=== PATIENT | male | born 1960 | race African-American/Black ===

== ENCOUNTER 2016-09-03 01:28 | Emergency (ER) | payer OTHER ==
[~2016-09-03 01:28] MED LIST: ACIPHEX20 MG PO; ALBUTEROL17 GM INH; AMOXICILLIN PO; ASPIRIN81 M1 PO; ASPIRIN81 M2 PO; ASPIRINEC PO; BACTROBAN22 GM TP; BLOOD PRESSURE PO; BP MED; FLONASE16 GM; GLIPIZIDE10 MG PO; GLUCOPHAGE500 MG PO; GLUCOTROL10 MG PO; IBUPROFEN600 MG PO; IBUPROFEN800 MG PO; IPRATROPIUM IH; KETOPROFEN PO; KLOR-CON PO; LISINOPRIL10 MG PO; LORTAB PO; METFORMIN HCL500 M1 PO; METOPROLOL TAR25 MG PO; MULTI VITAMIN1 EACH PO; MULTI-VITAMIN1 EAC1 PO; NICOTINE P1 PATCH .1 TD; NO MEDICATIONS; ORUDIS75 M1 PO; OXAZEPAM10 MG PO; PEN-VEE K PO; PRILOSEC20 M1 PO; PROVENTIL17 GM IH; QVAR7.3 G1 INH; SYMBICORT INH; THIAMINE HCL100 M1 PO; TYLENOL325 M1 PO; UNKNOWN BP MED; VICODIN 5/500 T1 TAB PO; ZANTAC PO; ZESTRIL10 MG PO; ZITHROMAX PO; [UNRECOGNIZED DRUG - OTHER]; [UNRECOGNIZED DRUG - REMARK]; [UNRECOGNIZED DRUG - REMARK]
== END 2016-09-03 06:50 | disposition home or self-care (01) ==
LOC: SED 01:28
DX: M25.552 Pain in left hip (principal); G89.29 Other chronic pain; F10.129 Alcohol abuse with intoxication, unspecified
CPT/HCPCS: 99282

== ENCOUNTER 2016-09-05 22:12 | Emergency (ER) | payer OTHER ==
[2016-09-05 23:53] LABS: ALBUMIN SERUM 4.5 g/dL (3.5-5.0); ALKALINE PHOSPHATASE 82 U/L (32-92); ALT (SGPT) 25 U/L (10-40); AST (SGOT) 34 U/L (10-42); BILIRUBIN, DIRECT 0.1 mg/dL (0.0-0.2); BILIRUBIN,INDIRECT 0.3 mg/dL (0.0-0.9); BILIRUBIN,TOTAL 0.4 mg/dL (0.2-2.0); BLOOD UREA NITROGEN 6 mg/dL (9-23); CARBON DIOXIDE 26 mmol/L (22-31); CHLORIDE 99 mmol/L (100-111); CREATININE SERUM 0.8 mg/dL (0.6-1.4); GLOM FILT RATE Estimated ABOVE60 mL/min (>60); GLUCOSE FASTING 115 mg/dL (70-110); POTASSIUM 3.8 mmol/L (3.5-5.1); PROTEIN TOTAL SERUM 8.4 g/dL (6.0-8.3); SALICYLATE <4.0 mg/dL; SODIUM 138 mmol/L (135-145)
[2016-09-06] LABS: ACETAMINOPHEN <10 ug/mL
[2016-09-06 00:01] LABS: ALCOHOL BLOOD 363 mg/dL (0)
[2016-09-06 00:13] LABS: AMPHETAMINE NEG (NEG); BARBITURATES NEG (NEG); BENZODIAZEPINES NEG (NEG); COCAINE NEG (NEG); MARIJUANA NEG (NEG); OPIATES NEG (NEG); TRICYCLIC ANTIDEPRESSANTS NEG (NEG); U METHADONE NEG (NEG)
[2016-09-06 02:02] LABS: BASOPHIL% 0.8 % (0-2.5); EOSINOPHIL# 0.3 X10e3 (0-0.7); EOSINOPHIL% 4.2 % (0.0-7.0); HEMATOCRIT 44.8 % (38.0-50.0); LYMPHOCYTE% 49.4 % (17.0-45.0); MEAN CELL VOLUME 89.3 FL (83-96); MEAN CORPUSCULAR HEMOGLOBIN 29.9 PG (28-34); MEAN CORPUSCULAR HGB CONC 33.5 g/dL (30-36); MEAN PLATELET VOLUME 8.4 FL (6.5-11.5); MONOCYTE# 0.4 X10e3 (0-1.0); MONOCYTE% 7.2 % (3.0-12.0); NEUTROPHIL# 2.4 X10e3 (1.5-7.1); NEUTROPHIL% 38.4 % (40-75); PLATELET COUNT 282 X10e3 (140-420); RED BLOOD COUNT 5.02 X10e (3.90-5.60); RED CELL DISTRIBUTION WIDTH 13.7 % (11.0-15.5); WHITE BLOOD COUNT 6.2 X10e3 (4.0-10.5)
[2016-09-06 02:05] LABS: DIFF IND NO
== END 2016-09-06 09:58 ==
LOC: CED 22:12
PROVIDERS: Emergency Medicine
DX: F10.10 Alcohol abuse, uncomplicated (principal); F31.9 Bipolar disorder, unspecified; F20.9 Schizophrenia, unspecified; I25.10 Atherosclerotic heart disease of native coronary artery without angina pectoris; I10 Essential (primary) hypertension; J45.909 Unspecified asthma, uncomplicated; F17.210 Nicotine dependence, cigarettes, uncomplicated
CPT/HCPCS: 36415; 80048; 80076; 80307; 82947; 85025; 99283; G0480

== ENCOUNTER 2016-09-08 14:22 | Emergency (ER) | payer OTHER ==
--- NOTE | ~2016-09-08 | CR150 ---
[facility] A Service of [facility] RADIOLOGY TEXT RESULTS PATIENT: JAIME MATA LOCATION: [facility] : 62 UNIT #: [id number] AGE: [address]: Efrain Martinez MD SEX: M ORDER DR: [id number] [facility] [address] [place], [place] [address] [id number] E MR#: [id number] Acc #: [id number] NAME: JAIME MATA : 1960 SEX: M STUDY DATE/TIME: 09/08/2016 13:46 UNIT: [facility] ROOM: STUDY DESCRIPTION: CR Hip Min 2 Views Lt Attending Physician: Mynor Martinez M.D. Ordering Physician: Ed Noe Rodriguez M.D. Primary Care Physician: No Primary Care Physician MEDICAL IMAGING REPORT This report is preliminary unless electronic signature is present EXAM Left hip, 09/08/2016, 1346 hours. HISTORY 2-year history of left hip pain. No acute injury. COMPARISON 07/24/2016 left femur film; left hip film 07/11/2016. FINDINGS AP pelvis and frog lateral view left hip demonstrate prior hardware at the right hip. Overall bone density is normal. Left hip joint space is normal. There is no fracture or degenerative change. IMPRESSION Negative pelvis and left hip. Stable hardware at the right femur. Dictated by... Cristina Dexter M.D. THIS IS AN ELECTRONICALLY VERIFIED REPORT Cristina Dexter M.D. at 09/09/2016 8:42 AM Yamileth TD: 09/08/2016 14:40 JOB #: [id number] MEDICAL IMAGING REPORT Page 1 of 1 COPY
== END 2016-09-08 14:30 | disposition home or self-care (01) ==
LOC: CED 14:22
DX: G89.29 Other chronic pain (principal); M25.552 Pain in left hip; F31.9 Bipolar disorder, unspecified; F17.210 Nicotine dependence, cigarettes, uncomplicated
CPT/HCPCS: 73502; 99283

== ENCOUNTER 2016-09-10 15:12 | Emergency (ER) | payer OTHER ==
--- NOTE | ~2016-09-10 | CR206 ---
[facility] A Service of [facility] RADIOLOGY TEXT RESULTS PATIENT: JAIME MATA LOCATION: SED : 62 UNIT #: [id number] AGE: [address]: Joaquim Pedraza MD SEX: M ORDER DR: [id number] [place] [id number] E MR#: [id number] Acc #: [id number] NAME: JAIME MATA : 1960 SEX: M STUDY DATE/TIME: 09/10/2016 15:16 UNIT: [facility] ROOM: STUDY DESCRIPTION: CR Pelvis 1 or 2 Views Attending Physician: Joaquim Pedraza M.D. Ordering Physician: Joaquim Pedraza M.D. Primary Care Physician: No Primary Care Physician MEDICAL IMAGING REPORT This report is preliminary unless electronic signature is present. EXAM Bilateral hips HISTORY 56-year-old male, pelvic pain and states EMS was called for man down FINDINGS Single AP view of the pelvis demonstrates postsurgical changes from ORIF of the right femur with a long intramedullary nail and proximal interlocking screw. Heterotopic ossification seen along the greater trochanter. No acute fracture noted. Bone mineralization appears normal. Pelvic calcifications compatible with phleboliths. Lower lumbar spine unremarkable. The left hip appears normal. No arthritic changes right hip. IMPRESSION No acute findings Dictated by... Manoj Casper M.D. THIS IS AN ELECTRONICALLY VERIFIED REPORT Manoj Casper M.D. at 09/11/2016 10:51 PM TIFFANY/maxim TD: 09/11/2016 04:11 JOB #: [id number] MEDICAL IMAGING REPORT Page 1 of 1
== END 2016-09-10 16:12 | disposition home or self-care (01) ==
LOC: SED 15:12
DX: S76.012A Strain of muscle, fascia and tendon of left hip, initial encounter (principal); M71.9 Bursopathy, unspecified; F31.9 Bipolar disorder, unspecified; J45.909 Unspecified asthma, uncomplicated; M19.90 Unspecified osteoarthritis, unspecified site; F20.9 Schizophrenia, unspecified
CPT/HCPCS: 72170; 99283

== ENCOUNTER 2016-09-11 08:13 | Emergency (ER) | payer OTHER | END 2016-09-11 08:25 | disposition home or self-care (01) | LOC: CED 08:13 | DX: G89.29 Other chronic pain (principal); M25.552 Pain in left hip; E11.9 Type 2 diabetes mellitus without complications; J44.9 Chronic obstructive pulmonary disease, unspecified; I10 Essential (primary) hypertension; F31.9 Bipolar disorder, unspecified; F20.9 Schizophrenia, unspecified; F17.210 Nicotine dependence, cigarettes, uncomplicated | CPT/HCPCS: 99283 ==

== ENCOUNTER 2016-09-16 20:46 | Emergency (ER) | payer OTHER ==
--- NOTE | ~2016-09-16 | CR229 ---
[facility] A Service of [facility] RADIOLOGY TEXT RESULTS PATIENT: JAIME MATA LOCATION: [facility] : 62 UNIT #: [id number] AGE: [address]: Adam Arias MD SEX: M ORDER DR: [id number] [facility] [address] [place], [place] [address] [id number] E MR#: [id number] Acc #: [id number] NAME: JAIME MATA : 1960 SEX: M STUDY DATE/TIME: 09/16/2016 21:20 UNIT: [facility] ROOM: STUDY DESCRIPTION: CR Shoulder Min 2 View Lt Attending Physician: Adam Arias M.D. Referring Physician: Primary Care Physician No Ordering Physician: Katlyn Maddox M.D. Primary Care Physician: Primary Care Physician No MEDICAL IMAGING REPORT This report is preliminary unless electronic signature is present EXAM Left shoulder 3 views HISTORY Shoulder pain after fall yesterday. FINDINGS AP view with internal and external rotation of the shoulder girdle shows satisfactory relationship of the humeral head and glenoid fossa. The joint space is normal. There is no identifiable fracture or dislocation or bony destructive process about the shoulder girdle anatomy. The acromioclavicular joint is normal. There is no radiopaque foreign body in the region. IMPRESSION Normal left shoulder. Dictated by... Tomi Treviño M.D. THIS IS AN ELECTRONICALLY VERIFIED REPORT Tomi Treviño M.D. at 09/17/2016 1:33 PM Christina TD: 09/17/2016 11:52 JOB #: [id number] MEDICAL IMAGING REPORT Page 1 of 1 COPY
[2016-09-16 21:10] LABS: BASOPHIL# 0.1 X10e3 (0-0.3); BASOPHIL% 0.9 % (0-2.5); EOSINOPHIL# 0.3 X10e3 (0-0.7); EOSINOPHIL% 4.7 % (0.0-7.0); HEMATOCRIT 41.7 % (38.0-50.0); HEMOGLOBIN 14.1 gm/dL (13.0-16.0); LYMPHOCYTE# 2.4 X10e3 (1.0-3.5); LYMPHOCYTE% 37.2 % (17.0-45.0); MEAN CELL VOLUME 89.8 FL (83-96); MEAN CORPUSCULAR HEMOGLOBIN 30.3 PG (28-34); MEAN CORPUSCULAR HGB CONC 33.7 g/dL (30-36); MEAN PLATELET VOLUME 7.9 FL (6.5-11.5); MONOCYTE# 0.4 X10e3 (0-1.0); MONOCYTE% 6.9 % (3.0-12.0); NEUTROPHIL# 3.3 X10e3 (1.5-7.1); NEUTROPHIL% 50.3 % (40-75); PLATELET COUNT 277 X10e3 (140-420); RED BLOOD COUNT 4.64 X10e (3.90-5.60); RED CELL DISTRIBUTION WIDTH 14.3 % (11.0-15.5); WHITE BLOOD COUNT 6.5 X10e3 (4.0-10.5)
[2016-09-16 21:11] LABS: DIFF IND NO
[2016-09-16 22:01] LABS: BILIRUBIN, DIRECT 0.1 mg/dL (0.0-0.2); BILIRUBIN,INDIRECT 0.2 mg/dL (0.0-0.9); BILIRUBIN,TOTAL 0.3 mg/dL (0.2-2.0); BUN/CREATININE RATIO 11.42; CALCIUM SERUM 8.8 mg/dL (8.4-10.2); CREATININE SERUM 0.7 mg/dL (0.6-1.4); GLOM FILT RATE Estimated 123.2 mL/min (>60); POTASSIUM 3.5 mmol/L (3.5-5.1)
== END 2016-09-17 04:44 | disposition short-term general hospital (02) ==
LOC: CED 20:46
PROVIDERS: Student in an Organized Health Care Education/Training Program
DX: F10.229 Alcohol dependence with intoxication, unspecified (principal); F20.9 Schizophrenia, unspecified; R45.850 Homicidal ideations; R45.851 Suicidal ideations; I10 Essential (primary) hypertension; F17.200 Nicotine dependence, unspecified, uncomplicated
CPT/HCPCS: 73030; 80048; 80076; 85025; 99285; G0480

== ENCOUNTER 2016-09-17 05:05 | Inpatient (IN) | payer OTHER ==
--- NOTE | ~2016-09-17 | PA ---
Unit #: [id number] #: [id number] Patient: JAIME MATA [id number] [facility] [address] [place] [address] [id number] MR#: [id number] NAME: JAIME MATA ROOM: [facility] Age: 56 Sex: M Admission Date: 09/17/2016 : 1960 Date of Assessment: 09/18/2016 Attending Physician: Issa Serrano M.D. Admitting Physician: Issa Serrano M.D. Primary Care Physician: Primary Care Physician No PSYCHIATRIC ASSESSMENT DATE OF SERVICE 09/18/2016. INFORMANTS The patient reliable; OLOP, reliable. CHIEF COMPLAINT Suicidal ideation. HISTORY OF PRESENT ILLNESS Jaime Mata is a 56-year-old man, who reports that he has been living on the streets due to medical condition and "drinking a gallon of [place]" a day. He drinks about 3 days out of the week. The patient had a knife on him and said that he "wanted to kill someone" when he was assessed at [facility]. He was clearly in a decompensated state and [facility] and [facility]. PAST PSYCHIATRIC HISTORY No previous admissions to this facility. The patient does have a history of alcohol dependence and reports no previous inpatient stays in the area. FAMILY PSYCHIATRIC HISTORY The patient denied a family history of mental illness or substance abuse. SOCIAL HISTORY The patient denied history of abuse or neglect. He is a single heterosexual man, who is currently homeless on a limited income. He is unemployed and finished high school. He was recently evicted from his apartment and is not currently living with his . PAST MEDICAL HISTORY Diabetes, hypertension, and prior hip and back surgery. MEDICATIONS The patient states he is not currently on any medications and could not remember the names and doses. ALLERGIES No known medication allergies. SUBSTANCE USE HISTORY As noted above. Unit #: [id number] #: [id number] Patient: JAIME MATA MENTAL STATUS EXAMINATION Mr. Mata presented as a disheveled man, who appeared his stated age. He was cooperative with the examination. His speech was spontaneous and easily understood. His musculoskeletal examination was mildly tremulous. His mood was depressed with a flat affect. He was alert and fully oriented. His memory and concentration were fair. His thought processes were goal directed with no active psychosis. He did report vague suicidal and homicidal ideation. He could not contract for safety outside of the hospital. His insight and judgment were fair. His fund of knowledge and abstraction were fair. ASSETS AND LIABILITIES The patient is familiar with local resources and presents voluntarily for treatment. Liabilities include lack of stable housing, multiple medical issues without treatment. ADMITTING DIAGNOSES AXIS I: Major depression, F33.2. AXIS II: No diagnosis. AXIS III: Hypertension, asthma, chronic pain. AXIS IV: AXIS V: PSYCHIATRIC PLAN The patient was admitted and placed on suicide precautions. His home medications will be determined by contacting his pharmacy and he will be placed on the alcohol detox protocol. He declined initiation of an antidepressant medication. TREATMENT GOALS Resolution of SI, stabilization of mood, improvement in insight, and improvement in coping skills, establishment of sobriety. DISCHARGE INSTRUCTIONS Followup with [facility]. ESTIMATED LENGTH OF STAY 5 days. Dictated by... Issa Serrano M.D. LAKISHA/zayra TD: 11/03/2016 01:44 JOB #: [id number] Unit #: [id number] #: [id number] Patient: JAIME MATA PSYCHIATRIC ASSESSMENT Page 1 of 1 X Issa Serrano MD X PSYCHIATRIC ASSESSMENT
--- NOTE | ~2016-09-17 | DS ---
Unit #: [id number] #: [id number] Patient: JAIME MATA [id number] [facility] [address] [place] [address] [id number] I MR#: [id number] NAME: JAIME MATA ROOM: [facility] Age: 56 Sex: M Admission Date: 09/17/2016 : 1960 Discharge Date: 09/19/2016 Attending Physician: Issa Serrano M.D. Primary Care Physician: Primary Care Physician No DISCHARGE SUMMARY REASON FOR ADMISSION Mr. Mata is a 56-year-old man who came in reporting vague suicidal and homicidal ideation and complaining of homelessness and lack of treatment for his multiple medical conditions. He had also been drinking alcohol to excess. He was admitted for safety and stabilization. DIAGNOSTIC STUDIES LABORATORY RESULTS: Please see hospital chart. HOSPITAL COURSE Mr. Mata was admitted and placed on suicide precautions and the alcohol detox protocol. He was seen by our medical consultants and restarted on diclofenac. He had no further suicidal ideation, intent, or plan and declined initiation of an antidepressant medication. On the date of discharge, he once again contracted for safety in the outpatient setting. DISCHARGE DIAGNOSES AXIS I: Alcohol dependence with withdrawal (revised diagnosis); depressive disorder, not otherwise specified. AXIS II: No diagnosis. AXIS III: Chronic pain. AXIS IV: AXIS V: DISCHARGE INSTRUCTIONS Follow up with [facility] and community health resources. DISCHARGE MEDICATIONS None were provided. The patient was to continue on diclofenac 75 mg b.i.d. by his primary care physician. CONDITION AT DISCHARGE Improved. PROGNOSIS Fair to good. DIET AND ACTIVITY Ad brody. Dictated by... Unit #: [id number] #: [id number] Patient: JAIME MATA Issa Serrano M.D. MRH/modl TD: 11/03/2016 00:44 JOB #: [id number] DISCHARGE SUMMARY Page 1 of 1 X Issa Serrano MD X DISCHARGE SUMMARY
--- NOTE | ~2016-09-17 | HP ---
Unit #: [id number] #: [id number] Patient: JAIME MATA [id number] [place] [address] [id number] I MR#: [id number] NAME: JAIME MATA ROOM: P205 Age: 56 Sex: M Admission Date: 09/17/2016 : 1960 Attending Physician: Issa Serrano M.D. Admitting Physician: Issa Serrano M.D. Primary Care Physician: Primary Care Physician No HISTORY AND PHYSICAL HISTORY OF PRESENT ILLNESS The patient states the only reason he is here is because he is homeless and he cannot live on the streets anymore with all of his medical conditions. PAST MEDICAL HISTORY Patient states asthma, hypertension and left hip pain. PAST SURGICAL HISTORY Significant for left leg surgery of some sort, although patient cannot tell me what. ALLERGIES None. SOCIAL HISTORY Negative. FAMILY HISTORY Noncontributory. REVIEW OF SYSTEMS CONSTITUTIONAL: No fever or chills. HEENT: Denies any sore throat, ear pain or runny nose. CARDIOVASCULAR: Denies chest pain, irregular heart rhythm or palpitations. CHEST: Denies shortness of breath or cough. No hemoptysis. GASTROINTESTINAL: Denies nausea, vomiting, diarrhea or chronic constipation. ENDOCRINE: Denies history of increased thirst or urination. No recent significant weight loss or gain. GENITOURINARY: Denies dysuria, frequency, or hematuria. SKIN: Denies any rashes. HEMATOLOGIC: Denies history of increased bleeding or bruising. MUSCULOSKELETAL: Denies any hot, swollen joints. No generalized muscle pain. NEUROLOGIC: Denies problems with vision or speech. No frequent, severe headaches. No numbness, tingling or weakness in any extremities. Denies loss of bladder or bowel control. CURRENT MEDICATIONS None. PHYSICAL EXAMINATION Unit #: [id number] #: [id number] Patient: JAIME MATA GENERAL: Alert, oriented, in no acute distress. VITAL SIGNS: Temperature 98.3, blood pressure 122/68, heart rate 82, respirations 16. HEIGHT: 5 feet 6 inches. WEIGHT: 200 pounds. SKIN: Multiple scars bilateral chest, midline abdomen, bilateral knees, right hip. Abrasion to the left thigh and a scar to the midline thoracic area. Tattoo to the left deltoid. Abrasion to the left wrist. Scars over the left eye and midline scalp. HEENT: Normocephalic. TMs not viewed. Oral and nasal passages clear. Conjunctivae clear. PERRLA. EOMs intact. NECK: Supple without lymphadenopathy or thyromegaly. HEART: Regular rate and rhythm without murmur. LUNGS: Clear. ABDOMEN: Soft, nontender, without masses or hepatosplenomegaly. : Not done. EXTREMITIES: No evidence of cyanosis, clubbing or edema. Moves all without focal deficit. NEUROLOGICAL: Grossly within normal limits. Cranial Nerves: II: Visual gonzales are intact. III, IV AND : Extraocular movements are intact. Pupils are equal, round and reactive to light. V: Facial sensation is grossly normal. VII: Facial movements and expression are normal. VIII: Auditory acuity grossly intact. IX, X: Uvula is midline. Phonation is normal. XI: Patient shrugs shoulders and turns head normally. XII: Tongue protrudes in the midline. Sensory and Motor Function: Sensory and motor sensation is grossly normal. Motor: moves all extremities well. Coordination: Gait is normal. Deep Tendon Reflexes: Intact. IMPRESSION Psychiatric admission. RECOMMENDATIONS PSYCHIATRIC: Per psychiatrist. MEDICAL: No contraindications to participate in facility's activities. MEDICAL PROGNOSIS Good. Dictated by... Apolonia Savage/keke TD: 09/17/2016 18:56 JOB #: [id number] Unit #: [id number] #: [id number] Patient: JAIME MATA HISTORY AND PHYSICAL Page 1 of 1 X Sharron Echevarria APR X HISTORY AND PHYSICAL
[2016-09-18 16:04] LABS: BASOPHIL% 0.6 % (0-2.5); EOSINOPHIL# 0.3 X10e3 (0-0.7); HEMOGLOBIN 14.8 gm/dL (13.0-16.0); LYMPHOCYTE# 1.7 X10e3 (1.0-3.5); LYMPHOCYTE% 22.2 % (17.0-45.0); MEAN CELL VOLUME 91.9 FL (83-96); MEAN CORPUSCULAR HEMOGLOBIN 30.2 PG (28-34); MEAN CORPUSCULAR HGB CONC 32.9 g/dL (30-36); MONOCYTE# 0.6 X10e3 (0-1.0); MONOCYTE% 7.4 % (3.0-12.0); NEUTROPHIL# 5.2 X10e3 (1.5-7.1); NEUTROPHIL% 65.8 % (40-75); PLATELET COUNT 290 X10e3 (140-420); RED CELL DISTRIBUTION WIDTH 14.4 % (11.0-15.5); WHITE BLOOD COUNT 7.9 X10e3 (4.0-10.5)
[2016-09-18 16:06] LABS: DIFF IND NO
[2016-09-18 16:34] LABS: ALBUMIN SERUM 4.2 g/dL (3.5-5.0); BILIRUBIN,TOTAL 0.4 mg/dL (0.2-2.0); GLOM FILT RATE Estimated 97.8 mL/min (>60); POTASSIUM 4.2 mmol/L (3.5-5.1); PROTEIN TOTAL SERUM 7.4 g/dL (6.0-8.3)
== END 2016-09-19 12:06 | DRG 897 ==
LOC: P2S 05:05
PROVIDERS: Psychiatry & Neurology Psychiatry
PROC: HZ2ZZZZ Detoxification Services for Substance Abuse Treatment (ICD-10-PCS; principal; 2016-09-17)
DX: F10.239 Alcohol dependence with withdrawal, unspecified (principal); F33.2 Major depressive disorder, recurrent severe without psychotic features; R45.851 Suicidal ideations; I10 Essential (primary) hypertension; J45.909 Unspecified asthma, uncomplicated; G89.29 Other chronic pain
CPT/HCPCS: 80053; 83036; 85025; 86592

== ENCOUNTER 2016-09-21 23:59 | Emergency (ER) | payer OTHER ==
--- NOTE | ~2016-09-21 | CR150 ---
[facility] A Service of [facility] RADIOLOGY TEXT RESULTS PATIENT: JAIME MATA LOCATION: [facility] : 62 UNIT #: [id number] AGE: [address]: Dallas Xie SEX: M ORDER DR: [id number] [facility] [address] [place], [place] [address] [id number] E MR#: [id number] Acc #: [id number] NAME: JAIME MATA : 1960 SEX: M STUDY DATE/TIME: 09/22/2016 4:52 UNIT: [facility] ROOM: STUDY DESCRIPTION: CR Hip Min 2 Views Lt Attending Physician: Dallas Xie P.A.-C. Ordering Physician: Dallas Xie P.A.-C. Primary Care Physician: Primary Care Physician No MEDICAL IMAGING REPORT This report is preliminary unless electronic signature is present EXAM Left hip series INDICATIONS Left hip pain after a fall tonight. PROCEDURE Frontal view pelvis and lateral view left hip COMPARISON 09/08/2016 FINDINGS No acute fracture or dislocation. IMPRESSION No acute findings. Dictated by... Mynor Reagan M.D. THIS IS AN ELECTRONICALLY VERIFIED REPORT Mynor Reagan M.D. at 09/26/2016 7:30 AM Amie TD: 09/22/2016 06:59 JOB #: [id number] MEDICAL IMAGING REPORT Page 1 of 1 COPY
--- NOTE | ~2016-09-21 | CR181 ---
[facility] A Service of [facility] RADIOLOGY TEXT RESULTS PATIENT: JAIME MATA LOCATION: [facility] : 62 UNIT #: [id number] AGE: [address]: Dallas Xie SEX: M ORDER DR: [id number] [facility] [address] [place], [place] [address] [id number] E MR#: [id number] Acc #: [id number] NAME: JAIME MATA : 1960 SEX: M STUDY DATE/TIME: 09/22/2016 4:54 UNIT: [facility] ROOM: STUDY DESCRIPTION: CR Lumbar Spine 2 or 3 Views Attending Physician: Dallas Xie P.A.-C. Ordering Physician: Dallas Xie P.A.-C. Primary Care Physician: Primary Care Physician No MEDICAL IMAGING REPORT This report is preliminary unless electronic signature is present EXAM Lumbar spine series INDICATIONS Lower back and left hip pain after fall tonight. PROCEDURE 3 views lumbar spine. COMPARISON 12/25/2013 FINDINGS Lumbar bodies have normal height. Overall alignment preserved. Degenerative change most significant at L3-L4, and similar to the prior. IMPRESSION No acute findings. Degenerative change similar to 2014. Dictated by... Mynor Reagan M.D. THIS IS AN ELECTRONICALLY VERIFIED REPORT Mynor Reagan M.D. at 09/26/2016 7:30 AM TANGELA/debo TD: 09/22/2016 07:00 JOB #: [id number] MEDICAL IMAGING REPORT Page 1 of 1 COPY
== END 2016-09-22 06:21 | disposition home or self-care (01) ==
LOC: CFTX 23:59
DX: M54.5 Low back pain (principal); M25.552 Pain in left hip; G89.29 Other chronic pain; F17.210 Nicotine dependence, cigarettes, uncomplicated; W01.0XXA Fall on same level from slipping, tripping and stumbling without subsequent striking against object, initial encounter; Y92.410 Unspecified street and highway as the place of occurrence of the external cause
CPT/HCPCS: 72100; 73502; 99284

== ENCOUNTER 2016-09-23 23:39 | Emergency (ER) | payer OTHER ==
--- NOTE | ~2016-09-23 | CT52 ---
[facility] A Service of [facility] RADIOLOGY TEXT RESULTS PATIENT: JAIME MATA LOCATION: [facility] : 62 UNIT #: [id number] AGE: [address]: Adam Tom MD SEX: M ORDER DR: [id number] [facility] [address] [place], [place] [address] [id number] E MR#: [id number] Acc #: [id number] NAME: JAIME MATA : 1960 SEX: M STUDY DATE/TIME: 09/24/2016 00:39 UNIT: [facility] ROOM: STUDY DESCRIPTION: CT Cervical Spine Wo Cont Attending Physician: Adam Tom M.D. Ordering Physician: Ed Neo Rodriguez M.D. Primary Care Physician: No Primary Care Physician MEDICAL IMAGING REPORT This report is preliminary unless electronic signature is present EXAM Cervical spine CT, 09/24 at 0039 hours. INDICATIONS Patient intoxicated and found down this evening. Patient confused and complains of neck pain. TECHNIQUE Axial images obtained through the cervical spine without contrast. Multiplanar reformats were obtained. Comparison is made with 12/25/2013. This CT exam was performed with one or more of the following radiation dose reduction techniques: automatic exposure control, adjustment of mA and/or kV according to patient size, and iterative reconstruction. FINDINGS No acute fracture or malalignment is seen. There is relatively mild degenerative disease, most pronounced at C5-6 where there is a broad-based disc osteophyte complex with mild narrowing of the central canal and both foramina. This does not appear significantly changed. IMPRESSION No acute fracture or malalignment. No significant change from prior. Dictated by... Rafi Fregoso Jr., M.D. THIS IS AN ELECTRONICALLY VERIFIED REPORT Rafi Fregoso Jr., M.D. at 09/24/2016 12:37 PM RANDELL/robert TD: 09/24/2016 09:19 JOB #: [id number] [facility] A Service of [facility] RADIOLOGY TEXT RESULTS PATIENT: JAIME MATA LOCATION: [facility] : 62 UNIT #: [id number] AGE: [address]: Adam Tom MD SEX: M ORDER DR: MEDICAL IMAGING REPORT Page 1 of 1 COPY
--- NOTE | ~2016-09-23 | CT71 ---
[facility] A Service of [facility] RADIOLOGY TEXT RESULTS PATIENT: JAIME MATA LOCATION: [facility] : 62 UNIT #: [id number] AGE: [address]: Adam Tom MD SEX: M ORDER DR: [id number] [facility] [address] [place], [place] [address] [id number] E MR#: [id number] Acc #: [id number] NAME: JAIME MATA : 1960 SEX: M STUDY DATE/TIME: 09/24/2016 00:36 UNIT: [facility] ROOM: STUDY DESCRIPTION: CT Head Wo Contrast Attending Physician: Adam Tom M.D. Ordering Physician: Ramez Rodriguez M.D. Primary Care Physician: No Primary Care Physician MEDICAL IMAGING REPORT This report is preliminary unless electronic signature is present EXAM Head CT, 09/24 at 00:36. INDICATIONS Patient found down and intoxicated. Patient confused. Posterior headache. Symptoms today. COMPARISON 12/25/[address] exam was performed with one or more of the following radiation dose reduction techniques: automatic exposure control, adjustment of mA and/or kV according to patient size, and iterative reconstruction. FINDINGS Axial noncontrast images were obtained from the skull base to the vertex. Ventricular size and configuration are normal. There is no evidence of acute infarct or hemorrhage. There are no extra-axial fluid collections. No mass lesion or mass effect is seen. There are no skull fractures. IMPRESSION Normal noncontrast head CT. 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 Dictated by... Rafi Fregoso Jr., M.D. THIS IS AN ELECTRONICALLY VERIFIED REPORT Rafi Fregoso Jr., M.D. at 09/24/2016 12:36 PM RLK/pc [facility] A Service of [facility] RADIOLOGY TEXT RESULTS PATIENT: JAIME MATA LOCATION: [facility] : 62 UNIT #: [id number] AGE: [address]: Adam Tom MD SEX: M ORDER DR: TD: 09/24/2016 09:17 JOB #: [id number] MEDICAL IMAGING REPORT Page 1 of 1 COPY
--- NOTE | ~2016-09-23 | CR151 ---
[facility] A Service of [facility] RADIOLOGY TEXT RESULTS PATIENT: JAIME MATA LOCATION: [facility] : 62 UNIT #: [id number] AGE: [address]: Adam Tom MD SEX: M ORDER DR: [id number] [facility] [address] [place], [place] [address] [id number] E MR#: [id number] Acc #: [id number] NAME: JAIME MATA : 1960 SEX: M STUDY DATE/TIME: 09/24/2016 0015 UNIT: [facility] ROOM: STUDY DESCRIPTION: CR Hip Min 2 Views Rt Attending Physician: Adam Tom M.D. Ordering Physician: Ed Neo Rodriguez M.D. Primary Care Physician: No Primary Care Physician MEDICAL IMAGING REPORT This report is preliminary unless electronic signature is present EXAM Right hip on 09/24 at 0015. INDICATION Right hip pain. Patient found down and intoxicated today. FINDINGS AP pelvis was obtained in addition to AP views of the right hip. Comparison is made with 09/10/2016. Intramedullary mir is noted in the right femur. No acute fracture or malalignment is seen. Femoral heads are normal without evidence of osteonecrosis. IMPRESSION No acute fracture or malalignment. No change from 09/10/2016. Dictated by... Rafi Fregoso Jr., M.D. THIS IS AN ELECTRONICALLY VERIFIED REPORT Rafi Fregoso Jr., M.D. at 09/24/2016 12:37 PM RANDELL/angelito TD: 09/24/2016 09:22 JOB #: [id number] MEDICAL IMAGING REPORT Page 1 of 1 COPY
== END 2016-09-24 04:40 | disposition home or self-care (01) ==
LOC: CED 23:39
DX: M25.551 Pain in right hip (principal); F10.10 Alcohol abuse, uncomplicated; E11.9 Type 2 diabetes mellitus without complications; F17.210 Nicotine dependence, cigarettes, uncomplicated
CPT/HCPCS: 70450; 72125; 73502; 99284

== ENCOUNTER 2016-10-06 22:50 | Emergency (ER) | payer OTHER ==
--- NOTE | ~2016-10-06 | CR151 ---
[facility] A Service of [facility] RADIOLOGY TEXT RESULTS PATIENT: JAIME MATA LOCATION: [facility] : 62 UNIT #: [id number] AGE: [address]: SHAQUILLE DIAZ APRN SEX: M ORDER DR: [id number] [facility] [address] [place], [place] [address] [id number] E MR#: [id number] Acc #: [id number] NAME: JAIME MATA : 1960 SEX: M STUDY DATE/TIME: 10/06/2016 22:57 UNIT: [facility] ROOM: STUDY DESCRIPTION: CR Hip Min 2 Views Rt Attending Physician: Shaquille Diza Aprn Ordering Physician: Shaquille Diaz Aprn Primary Care Physician: Primary Care Physician No MEDICAL IMAGING REPORT This report is preliminary unless electronic signature is present EXAM Right hip INDICATIONS Right hip pain. Previous femur surgery on the right side. Pain beginning today. FINDINGS An AP view of the right hip and lateral view of the right hip were obtained. There is an intramedullary mir in the right femur extending below the level of the study. The hip joint itself appears normal. The SI joints are normal and the left hip is normal. IMPRESSION Prior mir insertion of the right femur, otherwise the right hip appears normal. Dictated by... Portillo Graham M.D. THIS IS AN ELECTRONICALLY VERIFIED REPORT Portillo Graham M.D. at 10/07/2016 5:05 AM ROSELINE/rickey TD: 10/07/2016 00:21 JOB #: [id number] MEDICAL IMAGING REPORT Page 1 of 1 COPY
== END 2016-10-07 02:00 | disposition home or self-care (01) ==
LOC: CED 22:50
DX: M25.551 Pain in right hip (principal); G89.29 Other chronic pain; F10.129 Alcohol abuse with intoxication, unspecified; F17.210 Nicotine dependence, cigarettes, uncomplicated; J45.909 Unspecified asthma, uncomplicated; F31.9 Bipolar disorder, unspecified
CPT/HCPCS: 73502; 99283

== ENCOUNTER 2016-10-07 23:59 | Emergency (ER) | payer OTHER ==
--- NOTE | ~2016-10-07 | EKG ---
PATIENT: JAIME MATA UNIT #: [id number] Ventricular Rate: 60 BPM Atrial Rate: 60 BPM P-R Interval: 166 ms QRS Duration: 86 ms Q-T Interval: 416 ms QTC Calculation(Bezet): 416 ms P Morrow: 65 degrees Calculated R Morrow: 25 degrees Calculated T Morrow: 37 degrees Diagnosis Line: Normal sinus rhythm Diagnosis Line: Normal ECG Diagnosis Line: When compared with ECG of 12-FEB-2015 21:42, Diagnosis Line: Vent. rate has decreased BY 42 BPM Diagnosis Line: Confirmed by CONSTANZA LEONARD MD ([id number]) on 10/08/2016 Diagnosis Line: 6:31:41 PM INTERPRETING MD: HORACIO SKELTON
--- NOTE | ~2016-10-07 | CR63 ---
[facility] A Service of [facility] & [facility] RADIOLOGY TEXT RESULTS PATIENT: JAIME MATA LOCATION: [facility] : 62 UNIT #: [id number] AGE: [address]: RUFUS GUZMÁN SEX: M ORDER DR: [id number] [facility] [address] [place], [place] [address] [id number] MR#: [id number] Acc #: [id number] NAME: JAIME MATA : 1960 SEX: M STUDY DATE/TIME: 10/08/2016 1:03 UNIT: [facility] ROOM: STUDY DESCRIPTION: CR Chest 2 View Attending Physician: Rufus Guzmán Aprn Ordering Physician: Rufus Guzmán Aprn Primary Care Physician: No Primary Care Physician MEDICAL IMAGING REPORT This report is preliminary unless electronic signature is present EXAM Chest x-ray 10/08/2016 HISTORY 56-year-old male in the ED complaining of 1-week history of shortness of air, mid chest pain and weakness. TECHNIQUE AP and lateral upright chest series. FINDINGS Heart size and pulmonary vascularity are within normal limits. The lungs appear clear. No visible pulmonary infiltrate or pleural effusion. No change since 01/07/2016. IMPRESSION Negative chest. No change since . Dictated by... Rony Andres M.D. THIS IS AN ELECTRONICALLY VERIFIED REPORT Rony Andres M.D. at 10/08/2016 5:57 AM RAJINDER/maxim TD: 10/08/2016 01:46 JOB #: [id number] MEDICAL IMAGING REPORT Page 1 of 1 COPY
[2016-10-08 01:23] LABS: POC - CKMB 7.5 ng/mL (0.0-7.9); POC - TROPONIN <0.05 ng/mL (<=0.05)
[2016-10-08 01:42] LABS: BASOPHIL# 0.1 X10e3 (0-0.3); EOSINOPHIL# 0.3 X10e3 (0-0.7); EOSINOPHIL% 4.7 % (0.0-7.0); HEMATOCRIT 42.9 % (38.0-50.0); LYMPHOCYTE# 2.5 X10e3 (1.0-3.5); LYMPHOCYTE% 41.1 % (17.0-45.0); MEAN CELL VOLUME 92.2 FL (83-96); MEAN CORPUSCULAR HEMOGLOBIN 30.1 PG (28-34); MEAN CORPUSCULAR HGB CONC 32.6 g/dL (30-36); MEAN PLATELET VOLUME 8.5 FL (6.5-11.5); MONOCYTE# 0.6 X10e3 (0-1.0); NEUTROPHIL# 2.7 X10e3 (1.5-7.1); NEUTROPHIL% 44.2 % (40-75); PLATELET COUNT 262 X10e3 (140-420); RED BLOOD COUNT 4.65 X10e (3.90-5.60); RED CELL DISTRIBUTION WIDTH 15.1 % (11.0-15.5); WHITE BLOOD COUNT 6.2 X10e3 (4.0-10.5)
[2016-10-08 01:45] LABS: DIFF IND NO
[2016-10-08 01:50] LABS: ALBUMIN SERUM 4.2 g/dL (3.5-5.0); BILIRUBIN,TOTAL 0.7 mg/dL (0.2-2.0); BUN/CREATININE RATIO 13.33; CALCIUM SERUM 8.8 mg/dL (8.4-10.2); CREATININE SERUM 0.9 mg/dL (0.6-1.4); POTASSIUM 3.5 mmol/L (3.5-5.1); PROTEIN TOTAL SERUM 7.4 g/dL (6.0-8.3)
[2016-10-08 09:35] LABS: AMPHETAMINE NEG (NEG); BARBITURATES NEG (NEG); BENZODIAZEPINES NEG (NEG); COCAINE NEG (NEG); MARIJUANA NEG (NEG); OPIATES NEG (NEG); TRICYCLIC ANTIDEPRESSANTS NEG (NEG); U METHADONE NEG (NEG)
== END 2016-10-08 09:04 | disposition home or self-care (01) ==
LOC: CED 23:59
PROVIDERS: Nurse Practitioner Family
DX: F10.129 Alcohol abuse with intoxication, unspecified (principal); R06.02 Shortness of breath; E11.9 Type 2 diabetes mellitus without complications; I10 Essential (primary) hypertension; F17.210 Nicotine dependence, cigarettes, uncomplicated
CPT/HCPCS: 36415; 71020; 80053; 80307; 82553; 82947; 84484; 85025; 93005; 96365; 96366; 99284; G0480; J3411; J3475

== ENCOUNTER 2016-10-11 14:03 | Emergency (ER) | payer OTHER ==
--- NOTE | ~2016-10-11 | CT4 ---
[facility] A Service of [facility] RADIOLOGY TEXT RESULTS PATIENT: JAIME MATA LOCATION: [facility] : 62 UNIT #: [id number] AGE: [address]: Efrain Martinez MD SEX: M ORDER DR: [id number] [facility] [address] [place], [place] [address] [id number] E MR#: [id number] Acc #: [id number] NAME: JAIME MATA : 1960 SEX: M STUDY DATE/TIME: 10/11/2016 14:37 UNIT: [facility] ROOM: STUDY DESCRIPTION: CT Abd and Pelv Wo Cont Attending Physician: Mynor Martinez M.D. Ordering Physician: Valarie Ewing M.D. MEDICAL IMAGING REPORT This report is preliminary unless electronic signature is present EXAM CT abdomen and pelvis 10/11/2016 HISTORY Right flank pain for 1 year. Diabetes, hypertension, hernia repair, right hip and thigh pain. TECHNIQUE CT abdomen and pelvis performed without administration of oral or intravascular contrast. This CT exam was performed with one or more of the following radiation dose reduction techniques: automatic exposure control, adjustment of mA and/or kV according to patient size, and iterative reconstruction. COMPARISON STUDIES 07/25/2010. FINDINGS Some minimal patchy and linear densities at the right lung base, probably atelectatic in nature. Minimal basilar pneumonitis might be considered. There is no dense airspace disease. The inferior heart and pericardium are unremarkable. Liver appears somewhat low in overall density suggesting fatty infiltration. This is less pronounced than on the prior examination. The gallbladder, spleen, pancreas, adrenal glands unremarkable. No acute appearing renal abnormality. No hydronephrosis or nephrolithiasis. No ureteral dilatation or secondary sign of recent stone passage. CT PELVIS: No inguinal adenopathy. Streak artifact from intramedullary mir in the right femur. Small left inguinal hernia containing only fat. No change. Urinary bladder and prostate appear unremarkable. No fluid [facility] A Service of [facility] RADIOLOGY TEXT RESULTS PATIENT: ESPERANZA,JAIME LOCATION: [facility] : 62 UNIT #: [id number] AGE: [address]: Efrain Martinez MD SEX: M ORDER DR: collections in the pelvis. No pelvic or retroperitoneal adenopathy. Mild prominence of the distal esophageal wall measuring up to about 8 mm in thickness. Similar appearance on prior examination in 2010, likely the normal physiologic state for this patient. Mild esophagitis might be considered. The stomach and small bowel unremarkable. The appendix is not visualized but no pericecal or right lower quadrant inflammatory change is seen. Colon shows uncomplicated distal colonic diverticulosis. Unopacified vascular structures appear normal in caliber. Degenerative changes in the spine. No acute-appearing bony abnormality. Posterior concentric disc bulges L4-L5, L3-L4 with mild mass effect on thecal sac. IMPRESSION 1. No clearly acute abnormality is seen within the abdomen or pelvis. Study is somewhat limited in the absence of both oral and intravascular contrast. 2. Gallbladder, pancreas, kidneys unremarkable. 3. Appendix not visualized but no right lower quadrant or pericecal inflammatory change is suggested. 4. Uncomplicated distal colonic diverticulosis. 5. There are some mild patchy and linear densities at the right lung base favored to be atelectatic in nature. In the appropriate clinical context, very mild basilar pneumonitis might be considered. 6. No acute-appearing bony abnormality. Prior intramedullary mir placement right femur. Degenerative changes in lumbar spine, as described. It would assist in management, lumbar spine could best be further evaluated with elective MRI or CT. Dictated by... Dallas Schaeffer M.D. THIS IS AN ELECTRONICALLY VERIFIED REPORT Dallas Schaeffer M.D. at 10/12/2016 11:06 PM DORY/chelita TD: 10/11/2016 17:50 JOB #: [id number] MEDICAL IMAGING REPORT Page 1 of 1 COPY
[2016-10-11] MEDS ORDERED: VITAMIN B-1100 M1 PO (23:03)
[2016-10-11] MEDS ORDERED: DICLOFENAC PO (23:03)
== END 2016-10-11 16:29 | disposition home or self-care (01) ==
LOC: CED 14:03
DX: M16.0 Bilateral primary osteoarthritis of hip (principal); M54.5 Low back pain; G89.29 Other chronic pain; F31.9 Bipolar disorder, unspecified; Z98.890 Other specified postprocedural states; F17.210 Nicotine dependence, cigarettes, uncomplicated
CPT/HCPCS: 36415; 74176; 96372; 99284; J1885

== ENCOUNTER 2016-10-11 22:55 | Emergency (ER) | payer OTHER ==
[2016-10-11] MEDS ORDERED: VITAMIN B-1100 M1 PO (23:03)
[2016-10-11] MEDS ORDERED: DICLOFENAC PO (23:03)
== END 2016-10-12 07:01 | disposition home or self-care (01) ==
LOC: SED 22:55
DX: M25.551 Pain in right hip (principal); F10.10 Alcohol abuse, uncomplicated; E11.9 Type 2 diabetes mellitus without complications
CPT/HCPCS: 99282

== ENCOUNTER 2016-10-12 18:24 | Emergency (ER) | payer OTHER ==
--- NOTE | ~2016-10-12 | CR151 ---
[facility] A Service of [facility] & [facility] RADIOLOGY TEXT RESULTS PATIENT: JAIME MATA LOCATION: [facility] : 62 UNIT #: [id number] AGE: [address]: Tameka León SEX: M ORDER DR: [id number] [facility] [address] [place], [place] [address] [id number] E MR#: [id number] Acc #: [id number] NAME: JAIME MATA : 1960 SEX: M STUDY DATE/TIME: 10/12/2016 18:21 UNIT: [facility] ROOM: STUDY DESCRIPTION: CR Hip Min 2 Views Rt Attending Physician: Tameka León Pa-C Ordering Physician: Ed Doctor [id number] [facility] Primary Care Physician: No Primary Care Physician MEDICAL IMAGING REPORT This report is preliminary unless electronic signature is present EXAM Right hip, two views, 10/12/16 HISTORY Right hip pain after fall today FINDINGS Two views of the right hip demonstrate internal fixation with intramedullary mir extending inferior from the superior margin of the greater trochanter across an old healed fracture in the midshaft of the femur, with locking screw extending to the lesser trochanter. Alignment is satisfactory. No joint space narrowing, fracture or dislocation. IMPRESSION No acute findings. Internal fixation of the right hip and intramedullary mir extending to at least the midshaft of the femur. Dictated by... Tomi Treviño M.D. THIS IS AN ELECTRONICALLY VERIFIED REPORT Tomi Treviño M.D. at 10/13/2016 8:50 PM EVELYN/shyla TD: 10/12/2016 21:30 JOB #: [id number] MEDICAL IMAGING REPORT Page 1 of 1 COPY
[~2016-10-12 18:24] MED LIST changes: +DICLOFENAC PO; +VITAMIN B-1100 M1 PO
== END 2016-10-12 20:40 | disposition home or self-care (01) ==
LOC: CED 18:24
DX: S79.911A Unspecified injury of right hip, initial encounter (principal); E11.9 Type 2 diabetes mellitus without complications; J45.909 Unspecified asthma, uncomplicated; F31.9 Bipolar disorder, unspecified; F17.210 Nicotine dependence, cigarettes, uncomplicated; Z79.899 Other long term (current) drug therapy; W19.XXXA Unspecified fall, initial encounter; Y92.488 Other paved roadways as the place of occurrence of the external cause
CPT/HCPCS: 73502; 99283

== ENCOUNTER 2016-10-22 15:32 | Inpatient (IN) | payer OTHER ==
--- NOTE | ~2016-10-22 | CR72 ---
[facility] A Service of [facility] & [facility] RADIOLOGY TEXT RESULTS PATIENT: JAIME MATA LOCATION: [facility] : 62 UNIT #: [id number] AGE: [address]: Brent Johnston MD SEX: M ORDER DR: [id number] [facility] [address] [place], [place] [address] [id number] I MR#: [id number] Acc #: [id number] NAME: JAIME MATA : 1960 SEX: M STUDY DATE/TIME: 10/22/2016 16:23 UNIT: [facility] ROOM: [facility] STUDY DESCRIPTION: CR Chest Single View Portable Attending Physician: Brent Johnston M.D. Ordering Physician: Ed Neo Rodriguez M.D. Primary Care Physician: No Primary Care Physician MEDICAL IMAGING REPORT This report is preliminary unless electronic signature is present EXAM Portable chest. INDICATIONS Chest pain beginning today with cough and congestion. DATE OF EXAM 10/22/2016 COMPARISON Comparison to 10/08/2016. FINDINGS A portable view of the chest was obtained. The heart size and vascularity were normal. The lungs are clear. The bones are unremarkable. IMPRESSION No active disease. Dictated by... Portillo Graham M.D. THIS IS AN ELECTRONICALLY VERIFIED REPORT Portillo Graham M.D. at 10/22/2016 9:54 PM ROSELINE/brenda TD: 10/22/2016 20:41 JOB #: [id number] MEDICAL IMAGING REPORT Page 1 of 1 COPY
--- NOTE | ~2016-10-22 | ST ---
Unit #: [id number] #: [id number] Patient: JAIME MATA [id number] [address] [address] [id number] I MR#: [id number] NAME: JAIME MATA : 1960 SEX: M STUDY DATE/TIME: UNIT: [facility] ROOM: 567 STUDY DESCRIPTION: Stress Test Attending Physician: Stephan Verma M.D. Primary Care Physician: No Primary Care Physician CARDIOLOGY REPORT EXAM Lexiscan Cardiolite Stress Test DESCRIPTION Baseline EKG - normal sinus rhythm with ventricular rate 64 beats/minute, left atrial abnormality, slow R wave progression. Early repolarization. Lexiscan is a four minute test with Lexiscan being injected within the first minute followed by Cardiolite. EKG during the test was equivocal to baseline. No acute ischemic changes. The patient had no complaints of chest pain, palpitations or dizziness. Had increased shortness of breath and fatigueness which resolved in recovery phase. Maximum heart rate response was 122 beats/minute with a maximum blood pressure response of 126/82 mmHg. Cardiolite was injected after Lexiscan within the first minute of the test. Radionuclide test pending. Please correlate with nuclear images. Dictated by... Femi DaoRLázaro for Yvette Christensen/rashmi TD: 10/25/2016 10:31 JOB #: [id number] CARDIOLOGY REPORT Page 1 of 1 X Marleny Tom APRN CARDIOLOGY REPORT
--- NOTE | ~2016-10-22 | DS ---
Unit #: [id number] #: [id number] Patient: JAIME MATA [id number] [address] [address] [id number] I MR#: [id number] NAME: JAIME MATA ROOM: 567 Age: 56 Sex: M Admission Date: 10/22/2016 : 1960 Discharge Date: 10/25/2016 Attending Physician: Stephan Verma M.D. Primary Care Physician: No Primary Care Physician DISCHARGE SUMMARY DISCHARGE DIAGNOSES 1. Atypical chest pain. 2. Alcohol abuse. 3. Rhabdomyolysis. 4. Pancreatitis. 5. Chronic diastolic heart failure. HOSPITAL COURSE The patient is a 56-year-old male, who presented to [facility] on October 22 secondary to some chest pain. He was noted to be acutely intoxicated at that time. Apparently, he has had 13 ER visits in the past two months. The patient was admitted secondary to his chest pain and stress test was ordered. Ultimately, the patient's stress test returned negative for ischemia. Echo revealed grade 1 diastolic dysfunction. Given that his stress test is negative, patient is being discharged home at this time. DISCHARGE MEDICATIONS 1. Albuterol two puffs q.6 hours p.r.n. 2. Diclofenac 75 mg p.o. b.i.d. 3. Thiamine 100 mg p.o. daily. FOLLOWUP The patient is to follow up with his primary care provider in one week. Additionally, she will follow up with Dr. Tellez for some chronic hip pain as needed. Dictated by... Stephan Verma M.D. ANGEL/helen TD: 10/26/2016 11:18 JOB #: [id number] Unit #: [id number] #: [id number] Patient: JAIME MATA DISCHARGE SUMMARY Page 1 of 1 X Stephan Verma MD X DISCHARGE SUMMARY
--- NOTE | ~2016-10-22 | EKG ---
PATIENT: JAIME MATA UNIT #: [id number] Ventricular Rate: 101 BPM Atrial Rate: 101 BPM P-R Interval: 154 ms QRS Duration: 92 ms Q-T Interval: 346 ms QTC Calculation(Bezet): 448 ms P [place]: 65 degrees Calculated R [place]: 24 degrees Calculated T [place]ung[place]: 45 degrees Diagnosis Line: Sinus tachycardia Diagnosis Line: Left atrial enlargement Diagnosis Line: Incomplete right bundle branch block Diagnosis Line: Cannot rule out Septal infarct , age undetermined Diagnosis Line: Abnormal ECG Diagnosis Line: When compared with ECG of 08-OCT-2016 00:42, Diagnosis Line: Vent. rate has increased BY 41 BPM Diagnosis Line: Septal infarct is now Present Diagnosis Line: Confirmed by AVERY TAYLOR MD ([id number]) on 10/23/2016 Diagnosis Line: 4:08:50 PM INTERPRETING MD: CLAUDIA SKELTON
--- NOTE | ~2016-10-22 | CO ---
Unit #: [id number] #: [id number] Patient: JAIME MATA [id number] [address] [place], [place] [address] [id number] I MR#: [id number] NAME: JAIME MATA ROOM: 567 Age: 56 Sex: M Admission Date: 10/22/2016 : 1960 Attending Physician: Jose Rafael Velarde M.D. Primary Care Physician: Minnie Primary Care Physician Consultation Date: 10/23/2016 CONSULTATION REPORT REASON FOR CONSULT Chest pain. HISTORY OF PRESENT ILLNESS The patient is a 56-year-old -[place] male, who was homeless. We have seen the patient in the past. He had a stress test in 2008 as well as 2010 that were both negative for ischemia. He has risk factors for coronary artery disease such as hypertension and diabetes. The patient is currently homeless and has been staying with friends. He drinks about a pint of liquor a day. He is from his and has been worrying about her which has caused him to increase his alcohol activity. Patient states he has been having progressive weakness and decreased activity tolerance with dyspnea on exertion and fatigue. Yesterday, he developed some sharp pain in the chest and came to the emergency room for further evaluation. He was intoxicated on admission with an alcohol level of 323. He had an elevated CK of 2901 with negative troponins. We have been asked to see the patient for further evaluation. PAST MEDICAL HISTORY 1. Negative stress test in 2008 and 2010. 2. Diabetes. 3. Hypertension. 4. Chronic liver disease, secondary to alcohol use. 5. COPD. 6. History of rhabdomyolysis in the past. Last ejection fraction 2011 was 55% on an echocardiogram. SOCIAL HISTORY The patient drinks liquor daily, about a pint. No drug abuse. He is no longer a smoker of about a year ago. FAMILY HISTORY Noncontributory to coronary artery disease, except his father had hypertension. Mother had diabetes. DIAGNOSTIC STUDIES LABORATORY: White blood cell count 8.3, hemoglobin 15.5, hematocrit 46.4, platelet count 283,000. Magnesium 1.5. Troponin negative x2. CK 2901 and today is 1530. Alcohol level 323. Sodium 137, potassium 4.4, chloride 104, CO2 of 25, BUN 6, creatinine 0.8, glucose 78. CARDIOVASCULAR: EKG shows sinus rhythm with no acute ST changes. ALLERGIES Unit #: [id number] #: [id number] Patient: JAIME MATA No known drug allergies. HOME MEDICINES 1. Diclofenac 75 mg twice a day. 2. Vitamin B 100 mg daily. 3. Albuterol inhaler two puffs q.6 hours p.r.n. REVIEW OF SYSTEMS Complains of fatigue, dyspnea on exertion, sharp pain in the chest. No fever, chills, nausea, vomiting, diarrhea, dizziness, lightheadedness, headache, or change in visual field. Frequent falls and weakness. Also, complains of some left hip pain from recent hip prosthesis. PHYSICAL EXAMINATION GENERAL: Patient is awake and alert in no apparent distress. SKIN: Color is pink. Skin is warm and dry. VITAL SIGNS: Afebrile. Heart rate 87, blood pressure 119/77. HEENT: Normal carotid upstrokes. No auscultated bruits. Negative JVD lying supine. Negative hepatojugular reflux. CHEST: Respirations irregular and unlabored at rest. Bilateral breath sounds have good air entry through all lung gonzales. No crackles, rubs, or wheezes are heard. ABDOMEN: Soft, nontender, nondistended. Positive bowel sounds x4 quadrants. No ascites noted. EXTREMITIES: Bilateral lower extremities have no pretibial pitting edema. DP/PT pulses are 2+. Capillary refill less than 3 seconds. NEUROLOGIC: No focal sensory or motor deficits. MUSCULOSKELETAL: Moves all extremities without difficulty. IMPRESSION 1. Rhabdomyolysis. 2. Alcohol abuse. 3. Hypertension. 4. Diabetes. 5. Chronic obstructive pulmonary disease. 6. Homeless. 7. History of negative stress test, last in 2010. PLAN Patient is getting IV hydration for rhabdomyolysis. Electrolytes are being managed by primary. Will check a 2D echo with Doppler to rule out cardiomyopathy from alcohol. Cardiac enzymes are negative. EKG is unremarkable. Can consider stress test when rhabdomyolysis improves. Dictated by... Di Turcios APRN for Yvette Lopez/helen TD: 10/23/2016 14:57 JOB #: [id number] Unit #: [id number] #: [id number] Patient: JAIME MATA CONSULTATION REPORT Page 1 of 1 X X CONSULTATION REPORT
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
--- NOTE | ~2016-10-22 | CO ---
Unit #: [id number] #: [id number] Patient: JAIME MATA [id number] [facility] [address] [place], [place] [address] [id number] I MR#: [id number] NAME: JAIME MATA ROOM: 567 Age: 56 Sex: M Admission Date: 10/22/2016 : 1960 Attending Physician: Jose Rafael Velarde M.D. Primary Care Physician: Minnie Primary Care Physician Consultation Date: 10/24/2016 CONSULTATION REPORT ADMITTING PHYSICIAN Dr. Johnston CONSULTING PHYSICIAN Dr. Zack Tellez REASON FOR CONSULTATION Right hip pain. HISTORY OF PRESENT ILLNESS Mr. Mata is a pleasant 56-year-old male who I was asked to see in consultation by Dr. Velarde. This was for right hip pain. After discussion with the patient, the patient reports he has had pain in his right hip since October of last year. The patient reports back then he did get [place] [address]. The patient reports he does have pain in his right hip. He rates his pain at approximately 8 on a scale of 1 to 10. The patient reports most of his pain is lateral to his right hip. He denied any numbness or tingling associated with this pain. The patient originally came in to [facility] with chest pain and alcohol intoxication. The patient denied any numbness, tingling, fever or chills. PAST MEDICAL HISTORY 1. History of COPD. 2. History of alcohol abuse. 3. Hypertension. 4. Diet controlled diabetic. 5. Chronic right hip pain. 6. History of bipolar. PAST SURGICAL HISTORY 1. Hernia repair. 2. ORIF of right leg. ALLERGIES No known drug allergies. HOME MEDICATIONS None. FAMILY HISTORY Diabetes and CVA. SOCIAL HISTORY The patient has no home. He smokes three packs daily. He still continues Unit #: [id number] #: [id number] Patient: JAIME MATA to smoke. He drinks alcohol, about a 12 pack a day. He denies any illicit drugs. REVIEW OF SYSTEMS CONSTITUTIONAL: Denies weight gain or weight loss. EYES: Denies any double vision or blurred vision. LUNGS: Denies any shortness of air or chronic cough. CARDIOVASCULAR: Right now he denies any chest pain but apparently came into the hospital. He denied any irregular heartbeat. ABDOMEN: Denies nausea or vomiting. MUSCULOSKELETAL: Admits to right hip pain. This has been chronic for about a year. EXTREMITIES: Denies any swelling or edema. NEUROLOGICAL: Denies any numbness or tingling. Twelve complete systems in total reviewed and negative other than above. PHYSICAL EXAMINATION GENERAL: He is well developed, well nourished in no acute distress. He is alert and oriented x3. VITAL SIGNS: His temperature is 98.2, blood pressure 135/85, heart rate was 62, respirations 18. HEENT: Normocephalic, atraumatic. PERRLA. Extraocular movements intact. Conjunctivae clear. NECK: Supple. No thyromegaly. LUNGS: Clear to auscultation. No accessory muscle use. Equal expansion bilaterally. CARDIOVASCULAR: S1, S2. ABDOMEN: Soft, nontender, nondistended. Positive bowel sounds. MUSCULOSKELETAL: Gait not appreciated. Examination of the patient's right hip reveals he did have tenderness to palpation lateral to his right hip. He had decreased range of motion but did not have any pain with this range of motion. There were no masses or effusion able to appreciate. His quad strength was 4/5. The patient did have 2+ pulses in his lower extremities. EXTREMITIES: No clubbing, cyanosis or edema. SKIN: No rashes, lesions or ulcers. NEUROLOGIC/LIMITED ORTHOPEDIC EXAM: Moved all four extremities without problems or complications. DIAGNOSTIC STUDIES IMAGING: X-ray of his right hip pending. I actually met the patient in the x-ray department and then once again on the floor but the x-rays have not been uploaded. LABORATORY: Sodium is 137, potassium 4.1, chloride is 104, CO2 is 25, BUN 9, creatinine 0.8, glucose 88. PT was 10, INR is 1.0, WBC 5.0, hemoglobin 14.1. ASSESSMENT Right hip pain. PLAN Will await x-rays. If, in fact, they do not show much arthritis in the hip, will think about cortisone in the bursa because I think this is a component even though his hip joint may be playing a role. If, in fact, it is, we may think about having radiology to inject the patient's right hip but will await x-rays for further recommendations. Unit #: [id number] #: [id number] Patient: JAIME MATA Dictated by... Rodney Hallman P.A.-C- for Yvette Goodman/rashmi TD: 10/24/2016 08:49 JOB #: [id number] CONSULTATION REPORT Page 1 of 1 X X CONSULTATION REPORT
--- NOTE | ~2016-10-22 | TH ---
Unit #: [id number] #: [id number] Patient: JAIME AMTA [id number] [address] [address] [id number] I MR#: [id number] NAME: JAIME MATA : 1960 SEX: M STUDY DATE/TIME: 10/25/2016 UNIT: [facility] ROOM: 567 STUDY DESCRIPTION: Cardiolite imaging. Attending Physician: Stephan Verma M.D. Primary Care Physician: No Primary Care Physician CARDIOLOGY REPORT EXAM Cardiolite imaging. PROCEDURE Using technetium 99m labeled Cardiolite the rest and stress SPECT images were obtained. Multiple SPECT images were obtained in various views, including horizontal and vertical long axis and short axis views of the left ventricle. Images were obtained by gated SPECT method. The patient was administered 12.0 mCi of Cardiolite at rest. The patient was administered 33.0 mCi of Cardiolite after Lexiscan infusion was completed. On the stress images there was normal perfusion noted. The rest images showed normal perfusion. Comparing rest and stress images there is no stress induced ischemia noted. The left ventricular ejection fraction is calculated to be 49%. There is no focal wall motion abnormality seen. CONCLUSION 1. No obvious stress induced ischemia noted. 2. The left ventricular ejection fraction is calculated to be 49%. 3. There is no focal wall motion abnormality seen. 4. Normal Lexiscan Cardiolite stress test. 5. Technically somewhat limited study. Clinical correlation is requested. Dictated by... Yvette Christensen TD: 10/25/2016 10:51 JOB #: [id number] CC: Jose Rafael Velarde M.D. CARDIOLOGY REPORT Page 1 of 1 X Amarilis Richards MD <ELECTRONICALLY SIGNED> 01/07/17 1429 CARDIOLOGY REPORT
--- NOTE | ~2016-10-22 | EKG ---
PATIENT: JAIME MATA UNIT #: [id number] Ventricular Rate: 87 BPM Atrial Rate: 87 BPM P-R Interval: 146 ms QRS Duration: 74 ms Q-T Interval: 356 ms QTC Calculation(Bezet): 428 ms P [place]: 70 degrees Calculated R [place]: 38 degrees Calculated T [place]: 48 degrees Diagnosis Line: Normal sinus rhythm with sinus arrhythmia Diagnosis Line: Normal ECG Diagnosis Line: When compared with ECG of 22-OCT-2016 15:46, Diagnosis Line: (unconfirmed) Diagnosis Line: Criteria for Septal infarct are no longer Present Diagnosis Line: Confirmed by CONSTANZA LEONARD MD ([id number]) on 10/23/2016 Diagnosis Line: 9:17:32 PM INTERPRETING MD: HORACIO SKELTON
--- NOTE | ~2016-10-22 | HP ---
Unit #: [id number] #: [id number] Patient: JAIME MATA [id number] [address] [place], [place] [address] [id number] I MR#: [id number] NAME: JAIME MATA ROOM: 567 Age: 56 Sex: M Admission Date: 10/22/2016 : 1960 Attending Physician: Brent Johnston M.D. Primary Care Physician: No Primary Care Physician HISTORY AND PHYSICAL CHIEF COMPLAINT Chest pain, alcoholic intoxication. DISCUSSION This is a 56 year-old gentleman who has significant history of long-term alcohol use, diet-controlled diabetes, chronic right hip pain, COPD, alcoholic liver disease, hypertension, homeless, noncompliant. He has frequent visits to emergency room here. In the last two months he has had 13 visits in the ER for chronic right hip pain and alcoholic intoxication. He presented today with chief complaint of having chest pain which he describes as sharp. He said it is pressure, sharp, to the anterior chest wall and says hurting also all over, complaining of also right hip pain. He denies fever, chills, nausea or vomiting, abdominal pain. PAST MEDICAL HISTORY 1. He has a history of admission in 2013 for rhabdomyolysis and alcoholic intoxication. 2. History of COPD. 3. History of alcohol abuse. 4. Hypertension. 5. History of diet-controlled diabetes. 6. History of chronic right hip pain. 7. History of bipolar. PAST SURGICAL HISTORY 1. History of hernia repair. 2. History of ORIF for right leg fracture. ALLERGIES No known drug allergy. HOME MEDICATION He does not take any medication. FAMILY HISTORY Diabetes and CVA in the family. SOCIAL HISTORY Patient states currently he has no home. He smokes three packs daily. He still continues to smoke. He drinks alcohol too much. He said he drinks a 12 pack daily. He denies any other illicit drug use. REVIEW OF SYSTEMS Unit #: [id number] #: [id number] Patient: JAIME MATA All review of systems negative except as per history of present illness. PHYSICAL EXAMINATION VITAL SIGNS: On examination his current vitals are following: Temp is 97.9, heart rate 100, respiratory rate 16, blood pressure 140/90, oxygen 98% on room air. GENERAL EXAMINATION: On general examination he is (1) currently not in any distress. HEENT EXAMINATION: Pupils equally react to light and accommodation. Head is normocephalic. NECK: Supple. No JVD. LUNGS: Clear to auscultation. No rhonchi. No wheezing. HEART: S1, S2, regular rate and rhythm. ABDOMEN: Soft, nontender, nondistended. Bowel sounds positive. EXTREMITIES: Inspection normal. No cyanosis. No clubbing. No edema. NEUROLOGIC: No focal neurologic deficit. DIAGNOSTIC STUDIES LABORATORY: His current laboratory workup today is following: amylase is 60, lipase 76, INR is 1, his alcohol level is 323, troponin less than 0.05, sodium 137, potassium 3.4, chloride 101, glucose 125, BUN 9, creatinine 1, AST 86, ALT 85, white count 8, hemoglobin 15, hematocrit 46, platelets 283. IMAGING: Chest x-ray normal, nothing acute. CARDIOVASCULAR: EKG shows sinus tachycardia, incomplete right bundle branch, nonspecific ST changes. ASSESSMENT AND PLAN 1. Chest pain with history of stress test in 2008 which was negative: Will admit the patient to rule out acute coronary syndrome, ask Cardiology to evaluate. 2. ETOH intoxication: Currently he is intoxicated with alcohol. Will monitor for withdrawal. Place on the Librium 10 mg q.8 h. p.r.n. basis. 3. Questionable mild pancreatitis with increased amylase and lipase: Will give IV fluid, repeat amylase and lipase in the morning. 4. History of diabetes in the past, on diet: Check A1C. 5. Chronic right hip pain. 6. Chronic obstructive pulmonary disease. 7. Alcoholic liver disease. 8. History of hypertension in the past. 9. Alcohol abuse. 10. Tobacco abuse. 11. Homeless and noncompliance: Ask social work specialist to evaluate. Dictated by Yvette Cool TD: 10/22/2016 21:14 JOB #: [id number] Unit #: [id number] #: [id number] Patient: JAIME MATA HISTORY AND PHYSICAL Page 1 of 1 X X HISTORY AND PHYSICAL
[2016-10-22 16:35] LABS: BASOPHIL# 0.1 X10e3 (0-0.3); EOSINOPHIL# 0.2 X10e3 (0-0.7); EOSINOPHIL% 2.1 % (0.0-7.0); HEMATOCRIT 46.4 % (38.0-50.0); HEMOGLOBIN 15.5 gm/dL (13.0-16.0); LYMPHOCYTE# 2.4 X10e3 (1.0-3.5); LYMPHOCYTE% 28.8 % (17.0-45.0); MEAN CELL VOLUME 91.4 FL (83-96); MEAN CORPUSCULAR HEMOGLOBIN 30.5 PG (28-34); MEAN CORPUSCULAR HGB CONC 33.4 g/dL (30-36); MEAN PLATELET VOLUME 8.5 FL (6.5-11.5); MONOCYTE# 0.6 X10e3 (0-1.0); MONOCYTE% 7.7 % (3.0-12.0); NEUTROPHIL% 60.4 % (40-75); PLATELET COUNT 283 X10e3 (140-420); RED BLOOD COUNT 5.07 X10e (3.90-5.60); RED CELL DISTRIBUTION WIDTH 15.1 % (11.0-15.5); WHITE BLOOD COUNT 8.3 X10e3 (4.0-10.5)
[2016-10-22 16:40] LABS: DIFF IND NO
[2016-10-22 16:50] LABS: PARTIAL THROMBOPLASTIN TIME 26.6 SECONDS (23.5-31.3)
[2016-10-22 16:57] LABS: ALBUMIN SERUM 4.5 g/dL (3.5-5.0); BILIRUBIN, DIRECT 0.1 mg/dL (0.0-0.2); BILIRUBIN,INDIRECT 0.2 mg/dL (0.0-0.9); BILIRUBIN,TOTAL 0.3 mg/dL (0.2-2.0); CALCIUM SERUM 9.1 mg/dL (8.4-10.2); GLOM FILT RATE Estimated 97.8 mL/min (>60); POTASSIUM 3.4 mmol/L (3.5-5.1); PROTEIN TOTAL SERUM 8.1 g/dL (6.0-8.3)
[2016-10-22 17:01] LABS: POC - CKMB 31.7 ng/mL (0.0-7.9); POC - TROPONIN <0.05 ng/mL (<=0.05)
[2016-10-22 17:12] LABS: AMYLASE 60 U/L (0-46); LIPASE 76 U/L (22-51)
[2016-10-22 17:13] LABS: ALCOHOL BLOOD 323 mg/dL (0)
[2016-10-22 18:17] LABS: POC - CKMB 18.1 ng/mL (0.0-7.9); POC - TROPONIN <0.05 ng/mL (<=0.05)
[2016-10-22] MEDS ORDERED: VOLTAREN75 MG PO (23:01)
[2016-10-22] MEDS ORDERED: VITAMIN B-1100 M1 PO (23:01)
[2016-10-22] MEDS ORDERED: ALBUTEROL20 ml INH (23:02)
[2016-10-23 01:08] LABS: %MB 1.4 % (0.0-4.0); MB 27.2 ng/ml
[2016-10-23 06:55] LABS: %MB 1.3 % (0.0-4.0); MB 19.8 ng/ml
[2016-10-23 07:06] LABS: ALBUMIN SERUM 3.7 g/dL (3.5-5.0); BILIRUBIN,TOTAL 0.5 mg/dL (0.2-2.0); BUN/CREATININE RATIO 7.5; CREATININE SERUM 0.8 mg/dL (0.6-1.4); GLOM FILT RATE Estimated 116.6 mL/min (>60); MAGNESIUM 1.5 mg/dL (1.6-3.0); POTASSIUM 4.4 mmol/L (3.5-5.1); PROTEIN TOTAL SERUM 6.4 g/dL (6.0-8.3)
[2016-10-24 06:20] LABS: BASOPHIL% 0.9 % (0-2.5); EOSINOPHIL# 0.2 X10e3 (0-0.7); EOSINOPHIL% 4.1 % (0.0-7.0); HEMATOCRIT 42.7 % (38.0-50.0); HEMOGLOBIN 14.1 gm/dL (13.0-16.0); LYMPHOCYTE# 1.5 X10e3 (1.0-3.5); LYMPHOCYTE% 29.8 % (17.0-45.0); MEAN CELL VOLUME 92.1 FL (83-96); MEAN CORPUSCULAR HEMOGLOBIN 30.3 PG (28-34); MEAN PLATELET VOLUME 8.6 FL (6.5-11.5); MONOCYTE# 0.6 X10e3 (0-1.0); MONOCYTE% 11.7 % (3.0-12.0); NEUTROPHIL# 2.7 X10e3 (1.5-7.1); NEUTROPHIL% 53.5 % (40-75); PLATELET COUNT 235 X10e3 (140-420); RED BLOOD COUNT 4.64 X10e (3.90-5.60); RED CELL DISTRIBUTION WIDTH 15.2 % (11.0-15.5)
[2016-10-24 06:22] LABS: DIFF IND NO
[2016-10-24 06:57] LABS: ALBUMIN SERUM 3.4 g/dL (3.5-5.0); BILIRUBIN,TOTAL 0.8 mg/dL (0.2-2.0); BUN/CREATININE RATIO 11.25; CREATININE SERUM 0.8 mg/dL (0.6-1.4); GLOM FILT RATE Estimated 116.6 mL/min (>60); POTASSIUM 4.1 mmol/L (3.5-5.1); PROTEIN TOTAL SERUM 6.4 g/dL (6.0-8.3)
[2016-10-25 06:12] LABS: CHOLESTEROL 158 mg/dL (0-200); HDL CHOLESTEROL 72 mg/dL (29-75); LDL CHOLESTEROL 68 mg/dL (-130); LDL/HDL RATIO 1 RATIO (0-4); TRIGLYCERIDES 91 mg/dL (10-160)
== END 2016-10-25 13:03 | disposition home or self-care (01) | DRG 313 ==
LOC: CED 15:32 → CEDOF 17:40 → C5C 17:40 → CED 18:12 → CEDOF 18:12 → C5C 20:10 → CEDOF 20:10 → C5C 20:10
PROVIDERS: Emergency Medicine; Internal Medicine; Internal Medicine Cardiovascular Disease
PROC: B24BYZZ Ultrasonography of Heart with Aorta using Other Contrast (ICD-10-PCS; principal; 2016-10-23)
DX: R07.9 Chest pain, unspecified (principal); M62.82 Rhabdomyolysis; I50.32 Chronic diastolic (congestive) heart failure; K85.20 Alcohol induced acute pancreatitis without necrosis or infection; F10.129 Alcohol abuse with intoxication, unspecified; I10 Essential (primary) hypertension; E11.9 Type 2 diabetes mellitus without complications; F31.9 Bipolar disorder, unspecified; M25.551 Pain in right hip; F17.210 Nicotine dependence, cigarettes, uncomplicated; K70.9 Alcoholic liver disease, unspecified; Z59.0 Homelessness; Z91.19 Patient's noncompliance with other medical treatment and regimen; Y90.8 Blood alcohol level of 240 mg/100 ml or more
CPT/HCPCS: 36415; 71010; 73502; 78452; 80048; 80053; 80061; 80076; 82150; 82550; 82553; 82947; 83036; 83690; 83735; 84443; 84484; 85025; 85610; 85652; 85730; 86140; 93005; 93017; 93306; 94640; 94760; 97116; 97162; 97535; 99285; A9500; C9113; G0480; J2785; J3411; J3480

== ENCOUNTER 2016-10-26 22:04 | Emergency (ER) | payer OTHER ==
--- NOTE | ~2016-10-26 | CT71 ---
[facility] A Service of [facility] RADIOLOGY TEXT RESULTS PATIENT: JAIME MATA LOCATION: [place] : [birth year] UNIT #: [id number] AGE: [address]: Efrain Martinez MD SEX: M ORDER DR: [id number] [place] [id number] [facility]. [place], [place] [address] [id number] E MR#: [id number] Acc #: [id number] NAME: JAIME MATA : 1960 SEX: M STUDY DATE/TIME: 10/27/2016 0:41 UNIT: [place] ROOM: STUDY DESCRIPTION: CT Head Wo Contrast Attending Physician: Efrain Martinez Ordering Physician: Mynor Martinez M.D. Primary Care Physician: Primary Care Physician No MEDICAL IMAGING REPORT This report is preliminary unless electronic signature is present EXAM Noncontrast head CT HISTORY Fell today, alcohol abuse, complains of head and neck pain. COMPARISON Head CT 10/20/[address] exam was performed with one or more of the following radiation dose reduction techniques: automatic exposure control, adjustment of mA and/or kV according to patient size, and iterative reconstruction. FINDINGS axial noncontrast imaging of the brain demonstrates no acute intracranial abnormality. No mass or hemorrhage. No abnormal extraaxial fluid collections. Old left pontine lacunar infarct. Bony calvaria, skull base, mastoids and sinuses unremarkable. There is some mild bilateral ethmoid sinus mucosal disease. Flattening of the nasal bone may represent an old nasal bone fracture. IMPRESSION No acute intracranial abnormality identified. Old left pontine lacunar infarct. Dictated by... Manoj Casper M.D. THIS IS AN ELECTRONICALLY VERIFIED REPORT Manoj Casper M.D. at 10/27/2016 10:06 PM [facility] A Service [facility] RADIOLOGY TEXT RESULTS PATIENT: JAIME MATA LOCATION: [place] : [birth year] UNIT #: [id number] AGE: [address]: Efrain Martinez MD SEX: M ORDER DR: TIFFANY/huma TD: 10/27/2016 02:37 JOB #: [id number] MEDICAL IMAGING REPORT Page 1 of 1 COPY
--- NOTE | ~2016-10-26 | CR58 ---
[facility] A Service of [facility] RADIOLOGY TEXT RESULTS PATIENT: JAIME MATA LOCATION: [facility] : 62 UNIT #: [id number] AGE: [address]: Efrain Martinez MD SEX: M ORDER DR: [id number] [facility] [address] [place], [place] [address] [id number] E MR#: [id number] Acc #: [id number] NAME: JAIME MATA : 1960 SEX: M STUDY DATE/TIME: 10/27/2016 0:48 UNIT: [facility] ROOM: STUDY DESCRIPTION: CR Cervical Spine 2 or 3 Views Attending Physician: Efrain Martinez Ordering Physician: Mynor Martinez M.D. Primary Care Physician: Primary Care Physician No MEDICAL IMAGING REPORT This report is preliminary unless electronic signature is present EXAM C-spine 3 views HISTORY Alcohol abuse, found down. Brought in by EMS on a backboard. FINDINGS Routine views of the cervical spine demonstrates no gross fracture or malalignment. Degenerative disc changes noted C4-5, C5-6. Atlantoaxial joint unremarkable. Prevertebral soft tissues unremarkable. Dictated by... Manoj Casper M.D. THIS IS AN ELECTRONICALLY VERIFIED REPORT Manoj Casper M.D. at 10/27/2016 10:06 PM TIFFANY/huma TD: 10/27/2016 02:53 JOB #: [id number] MEDICAL IMAGING REPORT Page 1 of 1 COPY
--- NOTE | ~2016-10-26 | CR181 ---
[facility] A Service of [facility] & [facility] RADIOLOGY TEXT RESULTS PATIENT: JAIME MATA LOCATION: [place] : [birth year] UNIT #: [id number] AGE: [address]: Efrain Martinez MD SEX: M ORDER DR: [id number] [facility] [address] [place] [address] [place], [place] [address] [id number] E MR#: [id number] Acc #: [id number] NAME: JAIME MATA : 1960 SEX: M STUDY DATE/TIME: 10/27/2016 0:53 UNIT: [facility] ROOM: STUDY DESCRIPTION: CR Lumbar Spine 2 or 3 Views Attending Physician: Efrain Martinez Ordering Physician: Mynor Martinez M.D. Primary Care Physician: Primary Care Physician No MEDICAL IMAGING REPORT This report is preliminary unless electronic signature is present EXAM Lumbar spine 3 views HISTORY Found down tonight, alcohol abuse, on a backboard. COMPARISON 09/22/2016 FINDINGS Routine views of the lumbar spine demonstrates no change from patient's study of 09/22/2016. Mild degenerative changes L3-4. No fracture or malalignment. Dictated by... Manoj Casper M.D. THIS IS AN ELECTRONICALLY VERIFIED REPORT Manoj Casper M.D. at 10/27/2016 10:06 PM TIFFANY/huma TD: 10/27/2016 02:46 JOB #: [id number] MEDICAL IMAGING REPORT Page 1 of 1 COPY
[~2016-10-26 22:04] MED LIST changes: +ALBUTEROL20 ml INH; +VOLTAREN75 MG PO
== END 2016-10-27 03:18 | disposition home or self-care (01) ==
LOC: CED 22:04
DX: S13.4XXA Sprain of ligaments of cervical spine, initial encounter (principal); S33.5XXA Sprain of ligaments of lumbar spine, initial encounter; F10.129 Alcohol abuse with intoxication, unspecified; F31.9 Bipolar disorder, unspecified; F20.9 Schizophrenia, unspecified; F17.200 Nicotine dependence, unspecified, uncomplicated; Z79.1 Long term (current) use of non-steroidal anti-inflammatories (NSAID); Z79.899 Other long term (current) drug therapy; W19.XXXA Unspecified fall, initial encounter; Y92.524 Gas station as the place of occurrence of the external cause
CPT/HCPCS: 70450; 72040; 72100; 99284

== ENCOUNTER 2016-10-29 19:23 | Emergency (ER) | payer OTHER | END 2016-10-30 01:50 | disposition home or self-care (01) | LOC: CED 19:23 | DX: M25.551 Pain in right hip (principal); M25.552 Pain in left hip; G89.29 Other chronic pain; F10.129 Alcohol abuse with intoxication, unspecified; F17.210 Nicotine dependence, cigarettes, uncomplicated; Z79.899 Other long term (current) drug therapy | CPT/HCPCS: 99282 ==

== ENCOUNTER 2016-10-31 21:17 | Emergency (ER) | payer OTHER | END 2016-11-01 06:24 | disposition home or self-care (01) | LOC: CED 21:17 | DX: F10.129 Alcohol abuse with intoxication, unspecified (principal); J44.9 Chronic obstructive pulmonary disease, unspecified; F17.210 Nicotine dependence, cigarettes, uncomplicated; Z79.1 Long term (current) use of non-steroidal anti-inflammatories (NSAID); Z79.899 Other long term (current) drug therapy | CPT/HCPCS: 99282 ==

== ENCOUNTER 2016-11-02 00:28 | Emergency (ER) | payer OTHER ==
--- NOTE | ~2016-11-02 | EKG ---
PATIENT: JAIME MATA UNIT #: [id number] Ventricular Rate: 88 BPM Atrial Rate: 88 BPM P-R Interval: 152 ms QRS Duration: 90 ms Q-T Interval: 364 ms QTC Calculation(Bezet): 440 ms P [place]: 69 degrees Calculated R [place]: 28 degrees Calculated T [place]: 41 degrees Diagnosis Line: Normal sinus rhythm Diagnosis Line: Cannot rule out Septal infarct , age undetermined Diagnosis Line: Early repolarization Diagnosis Line: Abnormal ECG Diagnosis Line: When compared with ECG of 23-OCT-2016 08:14, Diagnosis Line: Septal infarct is now Present Diagnosis Line: Confirmed by AVERY TAYLOR MD ([id number]) on 11/03/2016 Diagnosis Line: 10:34:22 AM INTERPRETING MD: CLAUDIA SKELTON
== END 2016-11-02 01:05 | disposition home or self-care (01) ==
LOC: CED 00:28
DX: Z76.5 Malingerer [conscious simulation] (principal); J45.909 Unspecified asthma, uncomplicated; F31.9 Bipolar disorder, unspecified; I10 Essential (primary) hypertension; Z98.890 Other specified postprocedural states; F17.200 Nicotine dependence, unspecified, uncomplicated; Z79.899 Other long term (current) drug therapy
CPT/HCPCS: 93005; 99283

== ENCOUNTER 2016-11-02 18:08 | Emergency (ER) | payer OTHER | END 2016-11-02 19:41 | disposition home or self-care (01) | LOC: CED 18:08 | DX: M16.11 Unilateral primary osteoarthritis, right hip (principal); F10.129 Alcohol abuse with intoxication, unspecified; F20.9 Schizophrenia, unspecified; F17.210 Nicotine dependence, cigarettes, uncomplicated; F31.9 Bipolar disorder, unspecified | CPT/HCPCS: 99283 ==

== ENCOUNTER 2016-11-06 19:12 | Emergency (ER) | payer OTHER ==
--- NOTE | ~2016-11-06 | CR150 ---
[facility] A Service of [facility] RADIOLOGY TEXT RESULTS PATIENT: JAIME MATA LOCATION: [facility] : 62 UNIT #: [id number] AGE: [address]: Brianda Gannon APRN SEX: M ORDER DR: [id number] [facility] [address] [place], [place] [address] [id number] E MR#: [id number] Acc #: [id number] NAME: JAIME MATA : 1960 SEX: M STUDY DATE/TIME: 11/07/2016 5:33 UNIT: [facility] ROOM: STUDY DESCRIPTION: CR Hip Min 2 Views Lt Attending Physician: Brianda Gannon A.P.R.N. Ordering Physician: Brianda Gannon A.P.R.N. Primary Care Physician: Primary Care Physician No MEDICAL IMAGING REPORT This report is preliminary unless electronic signature is present EXAM Left hip HISTORY Left hip pain for 2 days. FINDINGS AP view of the pelvis and frog-leg lateral view of the left hip compared to the contralateral right hip. There is no acute fracture or dislocation. Sacroiliac joints are normal. Pubic symphysis is normal. IMPRESSION No acute findings. Dictated by... Remy Gillespie M.D. THIS IS AN ELECTRONICALLY VERIFIED REPORT Remy Gillespie M.D. at 11/07/2016 10:29 PM CODY/arsenio TD: 11/07/2016 06:00 JOB #: [id number] MEDICAL IMAGING REPORT Page 1 of 1 COPY
--- NOTE | ~2016-11-06 | CR151 ---
[facility] A Service of [facility] & [facility] RADIOLOGY TEXT RESULTS PATIENT: JAIME MATA LOCATION: [facility] : 62 UNIT #: [id number] AGE: [address]: Brianda Gannon APRN SEX: M ORDER DR: [id number] [facility] [address] [place], [place] [address] [id number] E MR#: [id number] Acc #: [id number] NAME: JAIME MATA : 1960 SEX: M STUDY DATE/TIME: 11/07/2016 5:32 UNIT: [facility] ROOM: STUDY DESCRIPTION: CR Hip Min 2 Views Rt Attending Physician: Brianda Gannon A.P.R.N. Ordering Physician: Brianda Gannon A.P.R.N. Primary Care Physician: Primary Care Physician No MEDICAL IMAGING REPORT This report is preliminary unless electronic signature is present EXAM Right hip HISTORY Right hip pain. FINDINGS 2 views of the right hip without comparison. There is no acute fracture or dislocation. Patient has had prior surgical repair of the right femur. IMPRESSION No acute findings. Dictated by... Remy Gillespie M.D. THIS IS AN ELECTRONICALLY VERIFIED REPORT Remy Gillespie M.D. at 11/07/2016 10:29 PM CODY/arsenio TD: 11/07/2016 06:02 JOB #: [id number] MEDICAL IMAGING REPORT Page 1 of 1 COPY
== END 2016-11-07 06:20 | disposition home or self-care (01) ==
LOC: CED 19:12
DX: M25.551 Pain in right hip (principal); E11.9 Type 2 diabetes mellitus without complications; I10 Essential (primary) hypertension; F17.210 Nicotine dependence, cigarettes, uncomplicated; J44.9 Chronic obstructive pulmonary disease, unspecified; G89.29 Other chronic pain; F10.129 Alcohol abuse with intoxication, unspecified; Z79.899 Other long term (current) drug therapy
CPT/HCPCS: 73502; 82947; 99284; G0480

== ENCOUNTER 2016-11-12 13:56 | Emergency (ER) | payer OTHER ==
[2016-11-13] MEDS ORDERED: NO MEDICATIONS (21:22)
== END 2016-11-12 14:50 | disposition home or self-care (01) ==
LOC: CED 13:56
DX: M25.559 Pain in unspecified hip (principal); G89.29 Other chronic pain; F10.20 Alcohol dependence, uncomplicated; F17.200 Nicotine dependence, unspecified, uncomplicated
CPT/HCPCS: 99282

== ENCOUNTER 2016-11-12 16:32 | Emergency (ER) | payer OTHER ==
[2016-11-13] MEDS ORDERED: NO MEDICATIONS (21:22)
== END 2016-11-13 01:00 | disposition left against medical advice (07) ==
LOC: CED 16:32
DX: Z53.21 Procedure and treatment not carried out due to patient leaving prior to being seen by health care provider (principal)

== ENCOUNTER 2016-11-13 20:55 | Emergency (ER) | payer OTHER ==
[2016-11-13] MEDS ORDERED: NO MEDICATIONS (21:22)
== END 2016-11-14 05:37 | disposition home or self-care (01) ==
LOC: SED 20:55
DX: F10.129 Alcohol abuse with intoxication, unspecified (principal); E11.9 Type 2 diabetes mellitus without complications; I10 Essential (primary) hypertension; F31.9 Bipolar disorder, unspecified; F17.200 Nicotine dependence, unspecified, uncomplicated; Z98.890 Other specified postprocedural states
CPT/HCPCS: 82947; 99282

== ENCOUNTER 2016-11-15 17:55 | Emergency (ER) | payer OTHER | END 2016-11-15 20:45 | disposition left against medical advice (07) | LOC: CED 17:55 | DX: Z53.21 Procedure and treatment not carried out due to patient leaving prior to being seen by health care provider (principal) ==

== ENCOUNTER 2016-11-17 21:17 | Emergency (ER) | payer OTHER ==
--- NOTE | ~2016-11-17 | CT52 ---
[facility] A Service of [facility] RADIOLOGY TEXT RESULTS PATIENT: JAIME MATA LOCATION: [place] : 62 UNIT #: [id number] AGE: [address]: Roland Karimi DO SEX: M ORDER DR: [id number] [place] [id number] [facility]. [place], [place] [address] [id number] E MR#: [id number] Acc #: [id number] NAME: JAIME MATA : 1960 SEX: M STUDY DATE/TIME: 11/17/2016 23:59 UNIT: [facility] ROOM: STUDY DESCRIPTION: CT Cervical Spine Wo Cont Attending Physician: Roland Karimi D.O. Ordering Physician: Roland Karimi D.O. Primary Care Physician: No Primary Care Physician MEDICAL IMAGING REPORT This report is preliminary unless electronic signature is present EXAM CT cervical spine without contrast. INDICATIONS Neck pain after a fall tonight. PROCEDURE Unenhanced CT cervical spine. This CT exam was performed with one or more of the following radiation dose reduction techniques: automatic exposure control, adjustment of mA and/or kV according to patient size, and iterative reconstruction. COMPARISON 09/24/16. FINDINGS Cervical bodies have normal height and alignment. Izpk-ny-tycljuzf multilevel degenerative change. Craniocervical junction and the dens are intact. No fracture. Varying degrees of central canal narrowing related to degenerative change. IMPRESSION No acute findings. Dictated by... Mynor Reagan M.D. THIS IS AN ELECTRONICALLY VERIFIED REPORT Mynor Reagan M.D. at 11/21/2016 7:19 AM EED/robert TD: 11/18/2016 08:48 JOB #: [id number] [facility] A Service [facility] RADIOLOGY TEXT RESULTS PATIENT: JAIME MATA LOCATION: [place] : 62 UNIT #: [id number] AGE: [address]: Hottman,Roland M DO SEX: M ORDER DR: MEDICAL IMAGING REPORT Page 1 of 1 COPY
--- NOTE | ~2016-11-17 | CR151 ---
[facility] A Service of [facility] & [facility] RADIOLOGY TEXT RESULTS PATIENT: JAIME MATA LOCATION: [facility] : 62 UNIT #: [id number] AGE: [address]: Roland Karimi DO SEX: M ORDER DR: [id number] [facility] [address] [place], [place] [address] [id number] E MR#: [id number] Acc #: [id number] NAME: JAIME MATA : 1960 SEX: M STUDY DATE/TIME: 11/18/2016 0:23 UNIT: [facility] ROOM: STUDY DESCRIPTION: CR Hip Min 2 Views Rt Attending Physician: Roland Karimi D.O. Ordering Physician: Roland Karimi D.O. Primary Care Physician: No Primary Care Physician MEDICAL IMAGING REPORT This report is preliminary unless electronic signature is present EXAM Right hip series. INDICATIONS Right hip pain after a fall today. PROCEDURE Three views of the right hip. COMPARISON None. FINDINGS Previous mir fixation of the femur. There is no acute fracture or dislocation. IMPRESSION No acute findings. Dictated by... Mynor Reagan M.D. THIS IS AN ELECTRONICALLY VERIFIED REPORT Mynor Reagan M.D. at 11/21/2016 7:19 AM TANGELA/robert TD: 11/18/2016 09:16 JOB #: [id number] MEDICAL IMAGING REPORT Page 1 of 1 COPY
--- NOTE | ~2016-11-17 | CR150 ---
[facility] A Service of [facility] & [facility] RADIOLOGY TEXT RESULTS PATIENT: JAIME MATA LOCATION: [facility] : 62 UNIT #: [id number] AGE: [address]: Roland Karimi DO SEX: M ORDER DR: [id number] [facility] [address] [place], [place] [address] [id number] E MR#: [id number] Acc #: [id number] NAME: JAIME MATA : 1960 SEX: M STUDY DATE/TIME: 11/18/2016 0:23 UNIT: [facility] ROOM: STUDY DESCRIPTION: CR Hip Min 2 Views Lt Attending Physician: Roland Karimi D.O. Ordering Physician: Roland Karimi D.O. Primary Care Physician: No Primary Care Physician MEDICAL IMAGING REPORT This report is preliminary unless electronic signature is present EXAM Left hip series. INDICATIONS Hip pain after a fall today. PROCEDURE 2 views of the left hip. COMPARISON 11/07/16 FINDINGS No fracture. No dislocation. IMPRESSION No acute findings. Dictated by... Mynor Reagan M.D. THIS IS AN ELECTRONICALLY VERIFIED REPORT Mynor Reagan M.D. at 11/21/2016 7:19 AM TANGELA/robert TD: 11/18/2016 09:15 JOB #: [id number] MEDICAL IMAGING REPORT Page 1 of 1 COPY
--- NOTE | ~2016-11-17 | CT71 ---
[facility] A Service of [facility] RADIOLOGY TEXT RESULTS PATIENT: JAIME MATA LOCATION: [place] : 62 UNIT #: [id number] AGE: [address]: Roland Karimi DO SEX: M ORDER DR: [id number] [place] [id number] [facility]. [place], [place] [address] [id number] E MR#: [id number] Acc #: [id number] NAME: JAIME MATA : 1960 SEX: M STUDY DATE/TIME: 11/17/2016 23:57 UNIT: [facility] ROOM: STUDY DESCRIPTION: CT Head Wo Contrast Attending Physician: Roland Karimi D.O. Ordering Physician: Roland Karimi D.O. Primary Care Physician: No Primary Care Physician MEDICAL IMAGING REPORT This report is preliminary unless electronic signature is present EXAM CT head without contrast. INDICATIONS Head pain after a fall tonight. PROCEDURE Unenhanced CT head. This CT exam was performed with one or more of the following radiation dose reduction techniques: automatic exposure control, adjustment of mA and/or kV according to patient size, and iterative reconstruction. COMPARISON 10/27/16 FINDINGS No acute hemorrhage, abnormal mass effect, extraaxial collection or hydrocephalus. No depressed calvarial fracture. Paranasal sinuses and mastoid air cells are clear. IMPRESSION No acute intracranial findings. Dictated by... Mynor Reagan M.D. THIS IS AN ELECTRONICALLY VERIFIED REPORT Mynor Reagan M.D. at 11/21/2016 7:19 AM EED/robert TD: 11/18/2016 08:47 JOB #: [id number] [facility] A Service [facility] RADIOLOGY TEXT RESULTS PATIENT: JAIME MATA LOCATION: [place] : 62 UNIT #: [id number] AGE: [address]: Roland Karimi DO SEX: M ORDER DR: MEDICAL IMAGING REPORT Page 1 of 1 COPY
== END 2016-11-18 05:34 | disposition home or self-care (01) ==
LOC: CED 21:17
DX: M25.552 Pain in left hip (principal); M25.551 Pain in right hip; F10.129 Alcohol abuse with intoxication, unspecified; W19.XXXA Unspecified fall, initial encounter; Y92.89 Other specified places as the place of occurrence of the external cause
CPT/HCPCS: 70450; 72125; 73502; 99284

== ENCOUNTER 2016-11-25 21:01 | Emergency (ER) | payer OTHER | END 2016-11-26 06:40 | disposition home or self-care (01) | LOC: CED 21:01 | DX: F10.129 Alcohol abuse with intoxication, unspecified (principal); Y90.9 Presence of alcohol in blood, level not specified; F20.9 Schizophrenia, unspecified; F17.200 Nicotine dependence, unspecified, uncomplicated; Z98.890 Other specified postprocedural states | CPT/HCPCS: 99282 ==

== ENCOUNTER 2016-11-26 16:00 | Emergency (ER) | payer OTHER | END 2016-11-26 17:05 | disposition home or self-care (01) | LOC: CED 16:00 | DX: F10.129 Alcohol abuse with intoxication, unspecified (principal); M25.551 Pain in right hip; M79.604 Pain in right leg; G89.29 Other chronic pain; E11.9 Type 2 diabetes mellitus without complications; J44.9 Chronic obstructive pulmonary disease, unspecified; F31.9 Bipolar disorder, unspecified; I10 Essential (primary) hypertension; F20.9 Schizophrenia, unspecified; F17.210 Nicotine dependence, cigarettes, uncomplicated | CPT/HCPCS: 99283 ==

== ENCOUNTER 2016-11-27 23:59 | Emergency (ER) | payer OTHER | END 2016-11-28 06:10 | disposition home or self-care (01) | LOC: CED 23:59 | DX: F10.129 Alcohol abuse with intoxication, unspecified (principal); F17.200 Nicotine dependence, unspecified, uncomplicated | CPT/HCPCS: 99284 ==

== ENCOUNTER 2016-11-28 22:39 | Emergency (ER) | payer OTHER | END 2016-11-29 07:54 | disposition home or self-care (01) | LOC: CED 22:39 | DX: F10.129 Alcohol abuse with intoxication, unspecified (principal); E11.9 Type 2 diabetes mellitus without complications; F17.200 Nicotine dependence, unspecified, uncomplicated; Z98.890 Other specified postprocedural states | CPT/HCPCS: 99283 ==

== ENCOUNTER 2016-12-02 21:40 | Emergency (ER) | payer OTHER | END 2016-12-03 05:01 | disposition home or self-care (01) | LOC: CED 21:40 | DX: F10.10 Alcohol abuse, uncomplicated (principal); Y90.9 Presence of alcohol in blood, level not specified; J44.9 Chronic obstructive pulmonary disease, unspecified; E11.9 Type 2 diabetes mellitus without complications; F31.9 Bipolar disorder, unspecified; I10 Essential (primary) hypertension; F17.200 Nicotine dependence, unspecified, uncomplicated; Z98.890 Other specified postprocedural states | CPT/HCPCS: 82947; 99284 ==

== ENCOUNTER 2016-12-04 22:20 | Emergency (ER) | payer OTHER | END 2016-12-05 06:36 | disposition home or self-care (01) | LOC: CED 22:20 | DX: F10.129 Alcohol abuse with intoxication, unspecified (principal) | CPT/HCPCS: 99284 ==

== ENCOUNTER 2016-12-10 01:06 | Emergency (ER) | payer OTHER | END 2016-12-10 07:58 | disposition home or self-care (01) | LOC: SED 01:06 | DX: F10.129 Alcohol abuse with intoxication, unspecified (principal); E11.9 Type 2 diabetes mellitus without complications; F31.9 Bipolar disorder, unspecified; F20.9 Schizophrenia, unspecified; F17.200 Nicotine dependence, unspecified, uncomplicated | CPT/HCPCS: 82947; 99284 ==

== ENCOUNTER 2016-12-11 01:01 | Emergency (ER) | payer OTHER | END 2016-12-11 05:45 | disposition home or self-care (01) | LOC: CED 01:01 | DX: F10.129 Alcohol abuse with intoxication, unspecified (principal) | CPT/HCPCS: 82947; 99284 ==

== ENCOUNTER 2017-01-21 16:13 | Emergency (ER) | payer OTHER ==
[~2017-01-21] VITALS: Ht 167.6 cm; Wt 90.7 kg
--- NOTE | ~2017-01-21 | CT4 ---
[facility] A Service of [facility] RADIOLOGY TEXT RESULTS PATIENT: JAIME MATA LOCATION: [place] : 62 UNIT #: [id number] AGE: [address]: Roland Karimi DO SEX: M ORDER DR: [id number] [facility] [address] [place], [place] [address] [id number] E MR#: [id number] Acc #: [id number] NAME: JAIME MATA : 1960 SEX: M STUDY DATE/TIME: 01/21/2017 20:51 UNIT: [place] ROOM: STUDY DESCRIPTION: CT Abd and Pelv Wo Cont Attending Physician: Roland Karimi D.O. Ordering Physician: Roland Karimi D.O. Primary Care Physician: Primary Care Physician No MEDICAL IMAGING REPORT This report is preliminary unless electronic signature is present EXAM CT abdomen and pelvis without contrast HISTORY 57-year-old male back pain, positive alcohol use. Left-sided abdominal pain increasing today. COMPARISON CT abdomen and pelvis 10/11/2016 FINDINGS Axial images form through the abdomen and pelvis without contrast. Multiplanar reconstructions. This CT exam was performed with one or more of the following radiation dose reduction techniques: automatic control, adjustment of mA and/or kV according to patient size, and iterative reconstruction. ABDOMEN: Lung bases unremarkable. Liver, spleen, and gallbladder unremarkable. Pancreas, kidneys and adrenal glands appear normal. No free air or free fluid. Visualized GI tract unremarkable. Appendix not clearly visualized but no inflammatory changes right lower quadrant. PELVIS: Bladder and prostate unremarkable. Fixation instrumentation seen in the proximal right femur. There is degenerative disc disease lumbar spine with moderate L3-4 spinal stenosis due to circumferential disc bulge and facet disease. Probable mild posterior disc bulging at L4-5. IMPRESSION 1. No acute intraabdominal intrapelvic pathology. 2. Mild multilevel degenerative disc changes lumbar spine with moderate L3-4 spinal stenosis due to circumferential disc bulge and facet disease. [facility] A Service of [facility] RADIOLOGY TEXT RESULTS PATIENT: JAIME MATA LOCATION: [facility] : 62 UNIT #: [id number] AGE: [address]: Roland Karimi DO SEX: M ORDER DR: Dictated by... Manoj Casper M.D. THIS IS AN ELECTRONICALLY VERIFIED REPORT Manoj Casper M.D. at 01/22/2017 2:04 PM TIFFANY/maxim TD: 01/21/2017 23:20 JOB #: [id number] MEDICAL IMAGING REPORT Page 1 of 1 COPY
--- NOTE | ~2017-01-21 | CR72 ---
[facility] A Service of [facility] & [facility] RADIOLOGY TEXT RESULTS PATIENT: JAIME MATA LOCATION: [facility] : 62 UNIT #: [id number] AGE: [address]: Roland Karimi DO SEX: M ORDER DR: [id number] [facility] [address] [place], [place] [address] [id number] E MR#: [id number] Acc #: [id number] NAME: JAIME MATA : 1960 SEX: M STUDY DATE/TIME: 01/21/2017 17:15 UNIT: [facility] ROOM: STUDY DESCRIPTION: CR Chest Single View Portable Attending Physician: Roland Karimi D.O. Ordering Physician: Roland Karimi D.O. Primary Care Physician: No Primary Care Physician MEDICAL IMAGING REPORT This report is preliminary unless electronic signature is present EXAM Portable chest. HISTORY Chronic back pain. Asthma. FINDINGS A single AP portable view of the chest shows both lungs to be clear. The heart is normal in size. The mediastinal contour is normal. No significant bone abnormalities are seen. IMPRESSION Normal portable chest. Dictated by... Tomi Treviño M.D. THIS IS AN ELECTRONICALLY VERIFIED REPORT Tomi Treviño M.D. at 01/21/2017 8:44 PM EVELYN/brenda TD: 01/21/2017 20:04 JOB #: [id number] MEDICAL IMAGING REPORT Page 1 of 1 COPY
--- NOTE | ~2017-01-21 | EKG ---
PATIENT: JAIME MATA UNIT #: [id number] Ventricular Rate: 83 BPM Atrial Rate: 83 BPM P-R Interval: 158 ms QRS Duration: 92 ms Q-T Interval: 366 ms QTC Calculation(Bezet): 430 ms P [place]: 59 degrees Calculated R [place]: 0 degrees Calculated T [place]: 31 degrees Diagnosis Line: Normal sinus rhythm Diagnosis Line: Incomplete right bundle branch block Diagnosis Line: Borderline ECG Diagnosis Line: When compared with ECG of 02-NOV-2016 00:40, Diagnosis Line: Criteria for Septal infarct are no longer Present Diagnosis Line: Confirmed by CONSTANZA LEONARD MD ([id number]) on 01/24/2017 Diagnosis Line: 7:01:20 AM INTERPRETING MD: HORACIO SKELTON
[2017-01-21 17:34] LABS: POC - CKMB 3.9 ng/mL (0.0-7.9); POC - TROPONIN <0.05 ng/mL (<=0.05)
[2017-01-21 17:38] LABS: PARTIAL THROMBOPLASTIN TIME 28.5 SECONDS (23.5-31.3); PROTHROMBIN TIME (PATIENT) 11.1 SECONDS (10.0-11.7)
[2017-01-21 17:46] LABS: ALBUMIN SERUM 3.8 g/dL (3.5-5.0); BILIRUBIN, DIRECT 0.1 mg/dL (0.0-0.2); BILIRUBIN,INDIRECT 0.4 mg/dL (0.0-0.9); BILIRUBIN,TOTAL 0.5 mg/dL (0.2-2.0); BUN/CREATININE RATIO 7.5; CALCIUM SERUM 8.6 mg/dL (8.4-10.2); CREATININE SERUM 1.2 mg/dL (0.6-1.4); GLOM FILT RATE Estimated 77.9 mL/min (>60); POTASSIUM 3.5 mmol/L (3.5-5.1); PROTEIN TOTAL SERUM 7.5 g/dL (6.0-8.3)
[2017-01-21 18:28] LABS: BASOPHIL% 1.2 % (0-2.5); EOSINOPHIL% 1.7 % (0.0-7.0); HEMATOCRIT 44.6 % (38.0-50.0); HEMOGLOBIN 15.6 gm/dL (13.0-16.0); LYMPHOCYTE# 1.4 X10e3 (1.0-3.5); LYMPHOCYTE% 52.9 % (17.0-45.0); MEAN CELL VOLUME 90.9 FL (83-96); MEAN CORPUSCULAR HEMOGLOBIN 31.7 PG (28-34); MEAN CORPUSCULAR HGB CONC 34.9 g/dL (30-36); MEAN PLATELET VOLUME 8.8 FL (6.5-11.5); MONOCYTE# 0.4 X10e3 (0-1.0); MONOCYTE% 15.7 % (3.0-12.0); NEUTROPHIL# 0.7 X10e3 (1.5-7.1); NEUTROPHIL% 28.5 % (40-75); PLATELET COUNT 219 X10e3 (140-420); RED BLOOD COUNT 4.91 X10e (3.90-5.60); WHITE BLOOD COUNT 2.6 X10e3 (4.0-10.5)
[2017-01-21 18:29] LABS: DIFF IND YES
[2017-01-21 18:39] LABS: AMPHETAMINE NEG (NEG); BARBITURATES NEG (NEG); BENZODIAZEPINES NEG (NEG); COCAINE NEG (NEG); MARIJUANA NEG (NEG); OPIATES NEG (NEG); TRICYCLIC ANTIDEPRESSANTS NEG (NEG); U METHADONE NEG (NEG)
[2017-01-21 18:40] LABS: PLATELET ESTIMATE NORMAL (NORMAL); RBC NORMAL YES
[2017-01-21 20:39] LABS: POC - CKMB 3.6 ng/mL (0.0-7.9); POC - TROPONIN <0.05 ng/mL (<=0.05)
[2017-01-21 20:43] LABS: URINE SOURCE CLEAN CATCH
[2017-01-21 20:48] LABS: URINE APPEARANCE CLEAR; URINE BILIRUBIN NEG (NEG); URINE BLOOD NEG (NEG); URINE COLOR YELLOW; URINE GLUCOSE NEG (NEG); URINE KETONE NEG (NEG); URINE LEUKOCYTE ESTERASE NEG (NEG); URINE NITRATE NEG (NEG); URINE PH 5.5 (5-8); URINE PROTEIN NEG (NEG); URINE SPECIFIC GRAVITY 1.005 (1.003-1.035); URINE UROBILINOGEN 0.2 MG/DL (NEG)
[2017-01-21 21:13] LABS: CULTURE INDICATED? NO
== END 2017-01-21 23:38 | disposition home or self-care (01) ==
LOC: CED 16:13
PROVIDERS: Emergency Medicine
DX: F10.129 Alcohol abuse with intoxication, unspecified (principal); M54.9 Dorsalgia, unspecified; G89.29 Other chronic pain; J44.9 Chronic obstructive pulmonary disease, unspecified; E11.9 Type 2 diabetes mellitus without complications; I10 Essential (primary) hypertension; F20.9 Schizophrenia, unspecified; Y90.7 Blood alcohol level of 200-239 mg/100 ml
CPT/HCPCS: 36415; 71010; 74176; 80048; 80076; 80307; 81003; 82550; 82553; 84484; 85025; 85379; 85610; 85730; 93005; 99285; G0480

== ENCOUNTER 2017-02-01 14:21 | Emergency (ER) | payer OTHER ==
[~2017-02-01] VITALS: Ht 170.2 cm; Wt 90.7 kg
== END 2017-02-01 18:29 | disposition left against medical advice (07) ==
LOC: CED 14:21
DX: Z53.21 Procedure and treatment not carried out due to patient leaving prior to being seen by health care provider (principal)

== ENCOUNTER 2017-02-06 01:10 | Emergency (ER) | payer OTHER ==
[~2017-02-06] VITALS: Ht 167.6 cm; Wt 99.8 kg
== END 2017-02-06 08:21 | disposition home or self-care (01) ==
LOC: CED 01:10
DX: F10.129 Alcohol abuse with intoxication, unspecified (principal); F17.200 Nicotine dependence, unspecified, uncomplicated
CPT/HCPCS: 99284

== ENCOUNTER 2017-02-20 18:06 | Emergency (ER) | payer OTHER ==
[~2017-02-20] VITALS: Ht 170.2 cm; Wt 99.8 kg
== END 2017-02-20 21:30 | disposition home or self-care (01) ==
LOC: CED 18:06
DX: F10.229 Alcohol dependence with intoxication, unspecified (principal); F31.9 Bipolar disorder, unspecified; F17.200 Nicotine dependence, unspecified, uncomplicated
CPT/HCPCS: 99284

== ENCOUNTER 2017-03-01 21:17 | Emergency (ER) | payer OTHER ==
[~2017-03-01] VITALS: Ht 167.6 cm; Wt 115.7 kg
== END 2017-03-02 06:09 | disposition home or self-care (01) ==
LOC: CED 21:17
DX: F10.129 Alcohol abuse with intoxication, unspecified (principal); F31.9 Bipolar disorder, unspecified; F17.200 Nicotine dependence, unspecified, uncomplicated
CPT/HCPCS: 99284

== ENCOUNTER 2017-03-07 20:23 | Emergency (ER) | payer OTHER ==
[~2017-03-07] VITALS: Ht 175.3 cm; Wt 77.1 kg
== END 2017-03-08 06:20 | disposition home or self-care (01) ==
LOC: CED 20:23
DX: F10.20 Alcohol dependence, uncomplicated (principal); F31.9 Bipolar disorder, unspecified; F20.9 Schizophrenia, unspecified; F17.200 Nicotine dependence, unspecified, uncomplicated
CPT/HCPCS: 99284